=== PATIENT | female | born 1980 | race Caucasian/White ===

== ENCOUNTER → 2020-07-27 13:29 | Outpatient (CLI) | payer OTHER, SELFPAY ==
--- NOTE | ~2020-07-27 | MM_ITS ---
EXAMINATION: MM screening esvin BI w nataly HISTORY: Screening TECHNIQUE: Craniocaudal and mediolateral oblique 3-D tomosynthesis images were obtained and synthetic 2-D images were generated. CAD analysis was submitted and interpreted. COMPARISON: Comparison to multiple prior studies sequentially, with oldest reviewed study dated 08/13. BREAST PARENCHYMAL COMPOSITION: There are scattered areas of fibroglandular density. FINDINGS: There is no evidence of suspicious mass, calcification, or architectural distortion to sugg est malignancy in either breast. There has been no suspicious interval change. IMPRESSION: 1. No mammographic evidence of malignancy. 2. Recommend routine screening mammography in one year. BI-RADS Category 1: Negative Reviewed, dictated and finalized at location A. CH COMMUNICATION PROFESSOR
== END ==
PROVIDERS: Visit Provider Obstetrics & Gynecology
DX: Z12.31 Encounter for screening mammogram for malignant neoplasm of breast (principal)
CPT/HCPCS: 77063; 77067

== ENCOUNTER 2020-08-07 14:43 | Outpatient (CLI) | payer OTHER, SELFPAY ==
[2020-08-07 15:10] LABS: Basophils Percent Auto 0.3 % (0.2-1.2); Eosinophils Absolute Auto 0.1 K/mm3 (0-0.3); Hematocrit 46.3 % (37.0-47.0); Immature Granulocyte Absolute 0.03 K/mm3 (0.00-0.031); Immature Granulocyte Percent A 0.2 % (0-0.5); Lymphocytes Absolute Auto 2.48 K/mm3 (0.9-3.2); Lymphocytes Percent Auto 20.3 % (18.3-44.2); Mean Corpuscular HGB Conc 34.6 g/dl (32-36); Mean Corpuscular Hemoglobin 30.4 pg (26-34); Monocytes Absolute Auto 0.8 K/mm3 (0.1-0.6); Monocytes Percent Auto 6.5 % (2.6-8.5); Neutrophils Absolute Auto 8.7 K/mm3 (1.3-6.7); Neutrophils Percent Auto 71.7 % (45.5-73.1); Platelet Count Result 311 k/mm3 (150-375); Red Blood Count 5.26 M/mm3 (4.2-5.4); Red Cell Distribution Width 12.7 % (11.5-14.5); White Blood Count 12.2 K/mm3 (4.5-10.0)
== END 2020-08-07 14:44 | disposition home or self-care (01) ==
PROVIDERS: PCP Internal Medicine; Visit Provider Obstetrics & Gynecology
DX: Z01.812 Encounter for preprocedural laboratory examination (principal); N80.9 Endometriosis, unspecified; N93.9 Abnormal uterine and vaginal bleeding, unspecified
CPT/HCPCS: 36415; 85025; 86850; 86900; 86901

== ENCOUNTER → 2020-08-08 03:41 | Outpatient (CLI) | payer OTHER, SELFPAY ==
[2020-08-09 18:18] LABS: SARS-CoV-2 RNA PCR Negative
== END ==
PROVIDERS: PCP Internal Medicine; Visit Provider Obstetrics & Gynecology
DX: Z01.812 Encounter for preprocedural laboratory examination (principal); Z20.822 Contact with and (suspected) exposure to COVID-19
CPT/HCPCS: C9803; U0003; U0005

== ENCOUNTER 2020-08-11 01:13 | Day surgery (SDC) | payer OTHER, SELFPAY ==
[2020-08-07 11:24] VITALS: BMI 58.2
--- NOTE | 2020-08-08 14:15 | PM.IMHP ---
H&P: HPI History of Present Illness Date/Time: 08/08/20 14:15 Chief Complaint: pain/bleeding Narrative: Margarita Arce is a 40 year old female G0 was admitted for hysterectomy and bilateral salpingectomy with possible right salpingo-oophorectomy. She has chronic pelvic pain with an enlarged uterus and dysmenorrhea as well as dyspareunia and history of endometriosis. Risks and benefits reviewed including not exclusive of , aspiration pneumonia, bleeding, transfusion, perforation injury to bowel, bladder, ureters, or other internal organs with need for laparotomy. She received the ACOG handout entitled hysterectomy as well as the Red hand. She had all questions answered. She asked to proceed Review of Systems Review of Systems: All systems reviewed & are unremarkable except as noted in HPI and below PMFSH Social History Social History Smoking status: Never smoker Second hand tobacco smoke exposure: No Alcohol intake: never Substance use: never Spiritual care concerns: No Meds Home Medications and Allergies Home Medications Medication Instructions Recorded Confirmed Type dulaglutide [Trulicity] 1.5 mg SUBCUT WEEKLY 08/07/20 08/07/20 History Allergies Allergy/AdvReac Type Severity Reaction Status Date / Time No Known Allergies Allergy Verified 08/07/20 11:22 Exam Const: General: no acute distress Eyes: General: appearance normal, both eyes and all related structures Neck: Neck: supple and no JVD Thyroid: thyroid normal Resp: Effort & Inspection: normal respiratory effort Auscultation: clear to auscultation bilaterally Cardio: Rate: regular rate Rhythm: regular rhythm GI: Inspection: non-distended GI Palp: Yes Soft to palpation, No Tenderness to palpation present (GI) and No Guarding due to palpation present (GI) Auscultation: normal bowel sounds : General: Yes bladder normal to inspection External Female Exam: normal external appearance Speculum Exam - Vagina: normal appearance of the vagina Speculum Exam - Cervix: Cervical mass present Bimanual exam- vagina & uterus: enlarged Bimanual Exam- Adnexa, other: tender on the right Skin: General skin exam: no rashes or lesions noted Extrem: General: normal to inspection and no edema Psych: Mental Status: mental status grossly normal Affect: normal affect Assessment and Plan Additional Plan impression: Pelvic pain / enlarged uterus / dysmenorrhea / dyspareunia Plan: Robotic total vaginal hysterectomy with bilateral salpingectomy /possible right salpingo-oophorectomy
[2020-08-11] VITALS (22 sets, daily range): BP systolic 152–172; BP diastolic 70–115; PULSE 82–109; RESP 12–20; TEMP 36.3–37.7; O2SAT 89–98; BMI 57.2
--- NOTE | 2020-08-11 06:19 | WPDHPUPDATE1 ---
History and Physical Update Update Date/Time: 08/11/20 06:19 History and Physical has been reviewed, including an updated exam of the patient. There are NO changes in the patient's condition. Risks, benefits, and alternatives have been discussed and questions answered. Patient agrees to proceed with procedure.
[2020-08-11] MEDS: LACTATED RINGERS 1,000 ML 30 ML IV CONT (06:58)
[2020-08-11] MEDS: ACETAMINOPHEN 500 MG TABLET 1000 MG PO (06:59)
[2020-08-11] MEDS: KETOROLAC 15 MG/ML VIAL (*BKC) IV PUSH (06:59)
--- NOTE | 2020-08-11 07:07 | SUR.PREOP ---
DR ERICKSON NOTIFIED OF VS.
--- NOTE | 2020-08-11 07:13 | WPDANESEPPF ---
Anes - Initial Pre Proc Eval Procedure: Operation Date: 08/11/20 07:30 Proposed Procedures p Robotic Assisted Total Vaginal Hysterectomy, Bilateral Salpingectomy, Possible Right Salpingo-Oophorectomy - Papito Arteaga MD Date/Time: 08/11/20 07:13 Surgeon: Papito Arteaga MD Pre Op Diagnosis: Pelvic pain, Enlarge Uterus, Endometriosis, Dyspur Patient Data Age: 40 Gender: F Height: 5 ft 5 in Weight: 155.9 kg Last Vital Signs Temp 98.0 F 08/11/20 07:05 Pulse 100 08/11/20 07:05 Resp 20 08/11/20 07:05 BP 172/86 H 08/11/20 07:05 Pulse Ox 98 08/11/20 07:05 Allergies Allergy/AdvReac Type Severity Reaction Status Date / Time No Known Allergies Allergy Verified 08/07/20 11:22 Home Medications Medication Instructions Recorded Confirmed Type Trulicity 1.5 mg SUBCUT WEEKLY 08/07/20 08/11/20 History Patient hx anesthesia problems: none Family hx anesthesia problems: none COUNTS INCLUDE 234 BEDS AT THE [facility] Past Medical History Medical History (Updated 08/11/20 @ 07:13 by Vinnie Stewart MD) Hypertension on admission to our unit; does not take any medications; states usually normal Super obesity Social History Social History Smoking status: Never smoker Second hand tobacco smoke exposure: No Alcohol intake: never Substance use: never Living arrangements: with family Spiritual care concerns: No Anes - Eval Final PreProcedure Day of Procedure 08/11/20 07:13 Patient weight: super morbidly obese Heart: regular rate and rhythm Lungs: clear to auscultation Airway: Mallampati scale class III Neurological: alert and oriented Last oral intake: >/= 8 hours ASA classification: IV Emergent: no Anesthetic plan: proceed Anesthesia type and monitoring: general ETT and standard monitoring Informed Consent: The patient's anesthetic plan and its attendant risks and benefits were discussed with the patient/family/POA. Questions were solicited and answers provided to the satisfaction of the patient/family/POA.
[2020-08-11] MEDS: ceFAZolin 3 GM/D5W 100 ML 100 ML IVPB (07:24)
--- NOTE | 2020-08-11 08:52 | P.OP_ITS ---
Procedure Note - Detailed Date of procedure: 08/11/20 Pre-op diagnosis: Pelvic pain, Enlarge Uterus, Endometriosis, Dyspur Surgeon: Papito Arteaga MD Postop diagnosis: Pelvic pain/enlarged uterus/dyspareunia Procedure: Robotic total vaginal hysterectomy and bilateral salpingectomy Anesthesia: General endotracheal EBL: 25cc Findings: Enlarged uterus. Normal-appearing ovaries and tubes Complications: None. The right ovary appeared within normal limits in this was not removed. Description of the procedure: The patient was prepped and draped in the normal sterile fashion placed in the dorsal lithotomy position. Under excellent general endotracheal anesthesia weighted speculum was placed in posterior fornix vagina. Anterior lip of the cervix was grasped with a single-tooth tenaculum i in the uterus sounded to 10cm. Serial dilatation with fragmented dilators performed followed by passage of the 10. THIAGO and the 3. Cold cup. Next the 16 [place] catheter was placed in the bladder and the bladder drained of clear urine. The weighted speculum was removed. The gloves were changed. A supraumbilical incision made in the Veress needle passed in the abdomen. The abdomen was filled with CO2 gas [id number]. The 8mm trocar advanced in the abdomen the downside visualized. No injury seen the patient placed in Trendelenburg and right and left lateral quadrant incisions made the 8mm trocar small was advanced in the right lower quadrant under direct visualization assuring no injury a longer trocar in the size been 8 was passed through the left lower quadrant and assuring no injury. The right upper quadrant incision made and 8mm trocar advanced under direct visualization. The robot was docked. Attention was turned to the financial health counselor. The left round ligament was grasped, burned, cut. Anterior bladder flap was formed by sharply dissecting and reflecting the bladder caudally away from the cervix and uterus to the opposite round ligament was clamped, burned, cut. Each ovary appeared within normal limits. The left and right fallopian tubes were then sharply dissected with cautery and brought to the level of its entrance in the uterus. The left utero- ovarian ligament was skeletonized to conserve the left ovary. This was clamped, burned, cut and brought to the level of the previously cut round ligament. In like fashion the right utero-ovarian ligament conserving the right ovary was clamped, burned, cut and brought to the level of the previously cut round ligament. The cardinal and broad ligaments on the left were serially skeletonized. These were clamped, burned, cut and brought down to the level of the uterine vessels. Each uterine vessel on the left was clamped, burned, cut. In the like fashion the right cardinal and broad ligaments were skeletonized. These were clamped, burned, cut and brought down the lateral edge of the cervix and uterus until the vessels could be seen on the right. These were individually clamped, burned, cut. Excellent blanching the uterus was seen at a colpotomy incision was made. The uterus and cervix and tubes removed through the vagina. The pedicles all appeared dry. The vagina closed with continuous running 0V lock from lateral edge to lateral edge back to the midline. Irrigation undertaken to clear blood loss estimated 25cc. The raw surface area was prepped with [place] term. Pedicles appeared dry and the robot was undocked. The gas removed from the abdomen. The incisions closed with 4 O Monocryl and glue. The instruments removed from the vagina. The patient went to recovery in satisfactory condition. All sponge, needle, instrument counts were correct. There were no immediate complications noted
[2020-08-11] MEDS: fentaNYL CITRATE INJ (*CRX) 100 MCG/2 ML VIAL 25 MCG IV PUSH ×2 (09:22→09:27)
--- NOTE | 2020-08-11 10:06 | PC.NURSE ---
This patient, Margarita Arce, was received from PACU on 08/11/20 at 1006. Patient/family oriented to unit policies and routines
[2020-08-11] MEDS: KETOROLAC 30 MG/ML VIAL (*BKC) IV PUSH (11:16)
[2020-08-11] MEDS: DEXTROSE 5%/LACTATED RINGERS 1,000 ML 125 ML IV CONT (11:16)
[2020-08-11] MEDS: LABETALOL HCL 100 MG TABLET 200 MG PO (11:49)
[2020-08-11] MEDS: HYDROcodone/acetaminophen (*CRX) 10-325 MG TABLET 1 TAB PO (13:42)
[2020-08-11] MEDS: DOCUSATE SODIUM 100 MG CAPSULE PO (13:43)
[2020-08-11] MEDS: lisinopriL 10 MG TABLET PO (14:00)
[2020-08-12 00:30] VITALS: BP 150/80; PULSE 101; RESP 17; TEMP 36.8
[2020-08-12 05:27] VITALS: BP 157/72; PULSE 99; RESP 18; TEMP 36.9; O2SAT 96
[2020-08-12] MEDS: IBUPROFEN 600 MG TABLET PO (06:59)
[2020-08-12] MEDS: SIMETHICONE 80 MG TAB.CHEW PO (06:59)
[2020-08-12] MEDS: ENOXAPARIN 40 MG/0.4 ML SYRINGE SUB-Q (06:59)
[2020-08-12] MEDS: DOCUSATE SODIUM 100 MG CAPSULE PO (06:59)
[2020-08-12] MEDS: HYDROcodone/acetaminophen (*CRX) 5-325 MG TABLET 1 TAB PO (07:00)
[2020-08-12 07:10] VITALS: BP 156/91; PULSE 98; RESP 16; TEMP 36.9; O2SAT 99
[2020-08-12 07:13] LABS: Basophils Percent Auto 0.1 % (0.2-1.2); Eosinophils Percent Auto 0.2 % (0-4.4); Hematocrit 44.4 % (37.0-47.0); Hemoglobin 14.8 g/dL (12.0-15.0); Immature Granulocyte Absolute 0.08 K/mm3 (0.00-0.031); Immature Granulocyte Percent A 0.5 % (0-0.5); Lymphocytes Absolute Auto 2.38 K/mm3 (0.9-3.2); Lymphocytes Percent Auto 15.3 % (18.3-44.2); Mean Corpuscular HGB Conc 33.3 g/dl (32-36); Mean Corpuscular Hemoglobin 29.8 pg (26-34); Mean Corpuscular Volume 89.5 fl (80-100); Mean Platelet Volume 9.1 fl (7.4-10.4); Monocytes Absolute Auto 1.3 K/mm3 (0.1-0.6); Monocytes Percent Auto 8.1 % (2.6-8.5); Neutrophils Absolute Auto 11.8 K/mm3 (1.3-6.7); Neutrophils Percent Auto 75.8 % (45.5-73.1); Platelet Count Result 272 k/mm3 (150-375); Red Blood Count 4.96 M/mm3 (4.2-5.4); Red Cell Distribution Width 12.9 % (11.5-14.5); White Blood Count 15.6 K/mm3 (4.5-10.0)
--- NOTE | 2020-08-12 08:17 | P.DS_ITS ---
DS: Admitting Diagnosis Admitting Diagnosis Admitting Diagnosis: pelvic pain endometriosis dysmenorrhea DS: Summary Hospital Course Hospital Course: Margarita Arce was admitted for robotic total laparoscopic hysterectomy and bilateral salpingectomy. She has chronic pelvic pain with an enlarged uterus and dysmenorrhea as well as dyspareunia and history of endometriosis. The above procedure was performed with no complications. She is doing well post op. She states her pain is well controlled with PO medications. She reports minimal bleeding. She is ambulating up to the chair. Her knox catheter was removed. She is tolerating PO without N/V. She reports passing flatus. Status at Discharge Overall status at discharge: patient is progressing back to baseline Time Spent with Patient Time attestation: Total time spent providing and/or coordinating discharge services: Time spent: Less than 30 minutes Exam Const: General: comfortable and no acute distress Limitations: no limitations Resp: Effort & Inspection: normal respiratory effort Auscultation: clear to auscultation bilaterally Cardio: Rate: regular rate Rhythm: regular rhythm GI: Inspection: non-distended GI Palp: Yes Soft to palpation, Yes Tenderness to palpation present (GI) (milder tenderness to deep palpation) and No Guarding due to palpation present (GI) Auscultation: normal bowel sounds Other: incisions C/D/I covered with dermabond Urinary Catheter: Urinary Catheter: urine clear Skin: General skin exam: normal color Extrem: General: normal to inspection Psych: Mental Status: mental status grossly normal Affect: normal affect DS: Data Data Completed and Pending Pending studies at discharge: Pending at discharge 08/11/20 08:54 Surgical [PTH] Routine Labs on day of discharge: Labs from last 24 hours 08/12/20 06:50 WBC 15.6 H RBC 4.96 Hgb 14.8 Hct 44.4 MCV 89.5 MCH 29.8 MCHC 33.3 RDW 12.9 Plt Count 272 MPV 9.1 Immature Gran % (Auto) 0.5 Neut % (Auto) 75.8 H Lymph % (Auto) 15.3 L [place] % (Auto) 8.1 Eos % (Auto) 0.2 Baso % (Auto) 0.1 L Lymph # (Auto) 2.38 [place] # (Auto) 1.3 H Eos # (Auto) 0.0 Baso # (Auto) 0.0 Abs Immat Gran (auto) 0.08 H Absolute Neuts (auto) 11.8 H Absolute Nucleated RBC 0.0 Nucleated RBC % 0.0 Discharge Plan Discharge Patient Disposition: Home, Self-Care Patient Instructions: Laparoscopic Hysterectomy (DC) Stand Alone Forms: General Discharge Instructions Follow-up/Referrals: Papito Arteaga MD [Physician] - Discharge Medications: New docusate sodium 100 mg Capsule 100 mg PO BID Qty: 30 RF: 0 ibuprofen 600 mg Tablet 600 mg PO Q6H PRN (Reason: Cramping) Qty: 30 RF: 0 hydrocodone-acetaminophen 5-325 mg Tablet 1 tablet PO Q3H PRN (Reason: Pain Rated 5 Or Less) Qty: 28 RF: 0 Continued Trulicity 1.5 mg/0.5 mL Pen Injector 1.5 mg SUBCUT WEEKLY RF: 0
--- NOTE | 2020-08-12 08:53 | WPDANESPN ---
Anes - Prog Note Post-Op Date/Time: 08/12/20 08:53 Cardiovascular status: normal Respiratory status: normal Airway patency: baseline Mental status: baseline Post-Op hydration status: normal Vital Signs: Last Vital Signs Temp 36.9 C 08/12/20 07:10 Pulse 98 08/12/20 07:10 Resp 16 08/12/20 07:10 BP 156/91 H 08/12/20 07:10 Pulse Ox 99 08/12/20 07:10 Pain Score (VAS): 0 I/O: Intake & Output 08/11/20 08/12/20 08/12/20 23:59 07:59 15:59 Intake Total 2400 3500 Output Total 1000 3500 Balance 1400 0 Laboratory Tests 08/12/20 06:50 08/12/20 06:50 WBC 15.6 H RBC 4.96 Hgb 14.8 Hct 44.4 MCV 89.5 MCH 29.8 MCHC 33.3 RDW 12.9 Plt Count 272 MPV 9.1 Immature Gran % (Auto) 0.5 Neut % (Auto) 75.8 H Lymph % (Auto) 15.3 L [place] % (Auto) 8.1 Eos % (Auto) 0.2 Baso % (Auto) 0.1 L Lymph # (Auto) 2.38 [place] # (Auto) 1.3 H Eos # (Auto) 0.0 Baso # (Auto) 0.0 Abs Immat Gran (auto) 0.08 H Absolute Neuts (auto) 11.8 H Absolute Nucleated RBC 0.0 Nucleated RBC % 0.0 Post-procedural complaints: none Patient Feedback: Patient satisfied with anesthetic care.
--- NOTE | 2020-08-12 09:55 | PC.NURSE ---
Discharge instructions given to pt. including when to follow up with MD. Pt. verbalized understanding. No questions or concerns voiced. at side.
== END 2020-08-12 10:07 | disposition home or self-care (01) ==
LOC: ANHSURGERY 05:57 → ANHOB2 10:08
PROVIDERS: PCP Internal Medicine; Visit Provider Obstetrics & Gynecology
PROC: (CPT 58552; principal; 2020-08-11 07:30)
DX: R10.2 Pelvic and perineal pain (principal); N84.0 Polyp of corpus uteri; N94.6 Dysmenorrhea, unspecified; N94.10 Unspecified dyspareunia; E66.01 Morbid (severe) obesity due to excess calories; Z68.43 Body mass index [BMI] 50.0-59.9, adult
CPT/HCPCS: 58552; S2900; 36415; 85025; 86850; 86900; 86901; 88307; 99199; A9270; C9803; J0330; J0690; J1100; J1650; J1885; J2250; J2405; J2704; J2710; J3010; J7030; J7120; J7121; U0003; U0005

== ENCOUNTER → 2021-10-03 14:10 | Outpatient (CLI) | payer OTHER, SELFPAY ==
--- NOTE | ~2021-10-03 | MM_ITS ---
EXAMINATION: MM screening esvin BI w nataly HISTORY: Screening TECHNIQUE: Craniocaudal and mediolateral oblique 3-D tomosynthesis images were obtained and synthetic 2-D images were generated. CAD analysis was submitted and interpreted. COMPARISON: Comparison to multiple prior studies sequentially, with oldest reviewed study dated 08/13. BREAST PARENCHYMAL COMPOSITION: There are scattered areas of fibroglandular density. FINDINGS: There is no evidence of suspicious mass, calcification, or architectural distortion to sugg est malignancy in either breast. There has been no suspicious interval change. IMPRESSION: 1. No mammographic evidence of malignancy. 2. Recommend routine screening mammography in one year. BI-RADS Category 1: Negative Reviewed, dictated and finalized at location A.
== END ==
PROVIDERS: Visit Provider Obstetrics & Gynecology
DX: Z12.31 Encounter for screening mammogram for malignant neoplasm of breast (principal)
CPT/HCPCS: 77063; 77067

== ENCOUNTER → 2022-12-19 12:15 | Outpatient (CLI) | payer OTHER, SELFPAY ==
--- NOTE | ~2022-12-19 | MM_ITS ---
EXAMINATION: MM screening esvin BI w nataly HISTORY: Screening mammogram TECHNIQUE: Craniocaudal and mediolateral oblique 3-D tomosynthesis images were obtained and synthetic 2-D images were generated. CAD analysis was submitted and interpreted. COMPARISON: October 03, 2021, July 27, 2020, August 13, 2018 bilateral screening mammogram examinat ions BREAST PARENCHYMAL COMPOSITION: There are scattered areas of fibroglandular density. FINDINGS: There are suspicious grouped microcalcifications including subtle granular as well as linea r microcalcifications in the central right breast. Diagnostic right mammogram with magnification view s and right breast ultrasound examination are recommended. Otherwise no suspicious mass, architectural distortion, malignant calcification, skin thickening or r etraction of either breast is detected. IMPRESSION: 1. Very suspicious microcalcifications in the central right breast, suggestive of DCIS or invasive du ctal carcinoma 2. Diagnostic right mammogram with magnification views and right breast ultrasound examination are re commended BI-RADS Category 0: Incomplete: Needs additional imaging evaluation. Reviewed, dictated and finalized at location A. IMPRESSION: 1. Very suspicious microcalcifications in the central right breast, suggestive of DCIS or invasive ductal carcinoma 2. Diagnostic right mammogram with magnification views and right breast ultraso und examination are recommended BI-RADS Category 0: Incomplete: Needs additional imaging evaluation.
== END ==
PROVIDERS: PCP Nurse Practitioner; Visit Provider Obstetrics & Gynecology
DX: Z12.31 Encounter for screening mammogram for malignant neoplasm of breast (principal)
CPT/HCPCS: 77063; 77067

== ENCOUNTER → 2023-01-22 09:46 | Outpatient (CLI) | payer OTHER, SELFPAY ==
--- NOTE | ~2023-01-22 | MM_ITS ---
EXAMINATION: MM diagnostic esvin RT w nataly HISTORY: Right breast calcifications on screening mammogram TECHNIQUE: Magnification views of the right breast were performed and synthetic 2-D images were gener ated. CAD analysis was submitted and interpreted. COMPARISON: 12/19/2022, 10/03/2021, 07/27/2020 BREAST PARENCHYMAL COMPOSITION: There are scattered areas of fibroglandular density. FINDINGS: There are grouped fine pleomorphic and amorphous calcifications in the middle third of the upper breast at the 12:00 location 8 cm from the nipple. No associated mass is identified. IMPRESSION: 1. Indeterminate right breast calcifications. 2. Stereotactic biopsy is recommended. BI-RADS category 4, suspicious findings. Reviewed, dictated and finalized at location A.
== END ==
PROVIDERS: PCP Nurse Practitioner; Visit Provider Obstetrics & Gynecology
DX: R92.8 Other abnormal and inconclusive findings on diagnostic imaging of breast (principal); R92.1 Mammographic calcification found on diagnostic imaging of breast
CPT/HCPCS: 77061; 77065; G0279

== ENCOUNTER 2023-02-03 12:54 | Outpatient (CLI) | payer OTHER, SELFPAY ==
--- NOTE | ~2023-02-03 | US_ITS ---
EXAMINATION: US breast RT limited HISTORY: Patient with suspicious right breast calcification presents for evaluation for possible ultr asound no correlate TECHNIQUE: Limited right breast ultrasound was performed. FINDINGS: There is no evidence of focal abnormal cystic or solid mass in the vicinity of the mammogra phic detected right breast calcifications. IMPRESSION: No sonographic correlate for the right breast calcifications. Stereotactic biopsy remains indicated. BI-RADS Category 1: Negative Reviewed, dictated and finalized at location A. IMPRESSION: No sonographic correlate for the right breast calcifications. Stereotactic biop sy remains indicated. BI-RADS Category 1: Negative
== END 2023-02-03 12:55 | disposition home or self-care (01) ==
PROVIDERS: PCP Nurse Practitioner; Visit Provider Surgery
DX: R92.8 Other abnormal and inconclusive findings on diagnostic imaging of breast (principal)
CPT/HCPCS: 76642

== ENCOUNTER 2023-02-11 12:49 | Outpatient (CLI) | payer OTHER, SELFPAY ==
--- NOTE | ~2023-02-11 | MM_ITS ---
MM stereotactic bx RT, MM post biopsy diagnostic RT, MM stereotactic specimen RT EXAMINATION: MM stereotactic bx RT, MM post biopsy diagnostic RT, MM stereotactic specimen RT INDICATION: Abnormal calcifications in the right breast. Stereotactic core biopsy is requested evalu ate for malignancy.] TECHNIQUE AND FINDINGS: The risks and potential benefits of the procedure were discussed with the patient and written informe d consent was obtained. The patient was placed in the prone position clustered at the table with the right breast in craniocaudal compression, and the area of interest was localized and targeted utiliz ing digital imaging with stereotaxis. After sterile preparation of the skin, 1% lidocaine was utilized for local anesthesia at the skin pun cture site and 1% lidocaine with epinephrine was utilized for deeper local anesthesia/is about the bi opsy site. A 9G CritiSense vacuum assisted biopsy needle was advanced to the level of the calcification o f interest from a cephalad approach utilizing stereotactic guidance and a total of 6 tissue core biop sies were obtained. A specimen radiograph demonstrates that the calcifications of interest are included within the tissue cores. A tissue marker clip was then placed at the biopsy site. The needle was removed and hemosta sis was achieved. The patient tolerated the procedure well and there is no evidence of significant i mmediate complication. The patient was given verbal as well as written postprocedural instructions p rior to discharge from the department. Tissue cores were submitted to surgical pathology for histolo gic analysis. A 2-view right unilateral digital mammogram was obtained post procedure and this demonstrates that th e tissue marker clip is in expected position.] IMPRESSION: 1. Successful stereotactic biopsy of calcifications in the right breast, followed by tissue marker c lip placement. Please refer to pathology report for histologic analysis. Reviewed, dictated and finalized at location A. IMPRESSION: 1. Successful stereotactic biopsy of calcifications in the right breast, follo wed by tissue marker clip placement. Please refer to pathology report for hist ologic analysis. IMPRESSION: 1. Successful stereotactic biopsy of calcifications in the right breast, follo wed by tissue marker clip placement. Please refer to pathology report for hist ologic analysis.
== END 2023-02-11 12:50 | disposition home or self-care (01) ==
PROVIDERS: PCP Nurse Practitioner; Visit Provider Surgery
DX: D05.11 Intraductal carcinoma in situ of right breast (principal)
CPT/HCPCS: 19081; 77065; 88305; 88342

== ENCOUNTER 2023-03-18 13:49 | Outpatient (CLI) | payer OTHER, SELFPAY ==
--- NOTE | ~2023-03-18 | MM_ITS ---
EXAMINATION: MM_MAGSEEDRT_MG INDICATION: Right breast cancer TECHNIQUE: The procedure for a ultrasound -guided Magseed localization was discussed with the patient . Risks discussed included bleeding and infection. The patient verbalized understanding and agreed to proceed. The time out was performed to verify the patient's name, date of , and site of procedure. The s kin overlying the right breast was prepared in usual fashion. Utilizing mammographic guidance, the ne edle was advanced into the right breast. Confirmation of Magseed position was achieved with mammograp hy. The patient tolerated procedure without immediate complication. FINDINGS: Mammographic images demonstrate deployment of the Magseed device of the biopsy-proven right breast cancer. IMPRESSION: 1. Successful mammographically guided right breast Magseed localization. Reviewed, dictated and finalized at location A.
== END 2023-03-18 13:50 | disposition home or self-care (01) ==
PROVIDERS: PCP Nurse Practitioner; Visit Provider Surgery
DX: D05.11 Intraductal carcinoma in situ of right breast (principal); R92.8 Other abnormal and inconclusive findings on diagnostic imaging of breast; R92.0 Mammographic microcalcification found on diagnostic imaging of breast
CPT/HCPCS: 19281; A4648

== ENCOUNTER 2023-03-20 12:16 | Outpatient (CLI) | payer OTHER, SELFPAY ==
--- NOTE | 2023-03-20 12:24 | ECG_ITS ---
Measurements Intervals [place] Rate: 81 P: -14 PA: 154 QRS: 8 QRSD: 78 T: 16 QT: 382 QTc: 446 Interpretive Statements SINUS RHYTHM LOW QRS VOLTAGE IN PRECORDIAL LEADS POOR R WAVE PROGRESSION, ANTERIOR LEADS BORDERLINE T WAVE ABNORMALITY- INFERIOR LEADS BASELINE ARTIFACT- I, II, III, AVR, AVL, AVF BORDERLINE ECG NO PREVIOUS ECG AVAILABLE FOR COMPARISON Electronically Signed On 03-20-2023 12:34:24 CDT by Jet Pagan D.O.
[2023-03-20 12:46] LABS: Anion Gap 6 mmol/L (8-16); Blood Urea Nitrogen 13 mg/dL (7-17); Carbon Dioxide 31 mmol/L (22-30); Chloride 100 mmol/L (98-107); Estimated Glomerular Filt Rate > 60; Glucose 125 mg/dL (65-110); Potassium 3.6 mmol/L (3.4-5.0); Sodium 137 mmol/L (137-145)
== END 2023-03-20 12:17 | disposition home or self-care (01) ==
LOC: ANHSURGERY 12:21
PROVIDERS: Anesthesiology; PCP Nurse Practitioner; Visit Provider Surgery
DX: Z01.818 Encounter for other preprocedural examination (principal); R73.03 Prediabetes; I10 Essential (primary) hypertension
CPT/HCPCS: 36415; 80048; 93005

== ENCOUNTER 2023-03-26 00:21 | Day surgery (SDC) | payer OTHER, SELFPAY ==
[2023-03-19 12:27] VITALS: BMI 51.2
--- NOTE | 2023-03-19 12:31 | PC.NURSE ---
Report to the Outpatient Waiting Room, entrance under the green pavilion located off [facility], at time 10:00 on date 03/26/23. Planned Procedure Time: 12:00. Time changes happen often and if your time is changed the preop area will call you the afternoon before. - You and your visitor will be asked to self-screen and do not enter if you have any COVID symptoms. - A mask is optional within the hospital at this time. Patients may have clear liquids (water, carbonated beverages, clear teas, apple juice) until 3 hours prior to surgery (9:00) with a maximum of 20 ounces. - No food from midnight until time of surgery Take the following medications with a SIP of water the morning of surgery: BISOPROLOL DO NOT STOP ANY OF YOUR OTHER PRESCRIPTION MEDICATIONS PRIOR TO SURGERY ?EXCEPT THE FOLLOWING Medications to discontinue per physician: N/A Date to take last dose: N/A Please no make-up, nail chadian, hairspray, perfume, deodorant, or body powder the day of surgery. No jewelry (including any body piercings) or valuables the day of surgery, leave them at home. Please take a shower or bath the night before, or the morning of, surgery with an antibacterial soap. Wear comfortable, loose fitting clothing. - Jewelry must be removed prior to entering the operating room. Rings and piercings that are not removed may be cut off. - The hospital will not accept responsibility for valuables. - Please leave all valuables, including medications, at home the day of surgery. If you are going home after surgery, a licensed guard driver must drive you home. - NO public transportation without another adult if you receive anesthesia. - We recommend that an adult stay with you for 24 hours following discharge. - We also recommend that you do not drive, make important decision, drink alcoholic beverages, or take any drugs that were not prescribed by your health care provider for at least 24 hours after your discharge time. Follow any additional instructions given to you from your surgeon. If you or anyone in your household have experienced Covid symptoms in the past week, please notify your surgeon or the nurse liaison at the phone number below for possible testing. Telephone instructions given to PT - LIVE WALKER and asked if any additional questions and then verbalized understanding. Patient advised to call surgeon office or pre surgery nurse liaison [phone] if any additional questions.
[2023-03-26] VITALS (8 sets, daily range): BP systolic 125–141; BP diastolic 75–91; PULSE 83–106; RESP 12–16; TEMP 36.4–37.1; O2SAT 92–100
--- NOTE | ~2023-03-26 | MM_ITS ---
EXAMINATION: MM_FAXITRON_MG HISTORY: Surgical excision, breast cancer TECHNIQUE: Single digital mammographic exposure of surgical soft tissue specimen COMPARISON: 03/18/2023 Magseed right FINDINGS: The radiopaque biopsy marker and Magseed are present within the surgical specimen tissue. IMPRESSION: Successful surgical excision of radiopaque biopsy marker and Magseed Reviewed, dictated and finalized at location A.
[2023-03-26] MEDS: ACETAMINOPHEN 500 MG TABLET 1000 MG PO (10:25)
[2023-03-26] MEDS: LACTATED RINGERS 1,000 ML 30 ML IV CONT ×2 (11:00→13:54)
[2023-03-26 11:09] LABS: Glucose Point of Care 113 mg/dl (65-105)
--- NOTE | 2023-03-26 11:15 | P.PNAN_ITS ---
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 Patient Data Age: 42 Gender: F Height: 1.65 m Weight: 140.1 kg Last Vital Signs Temp 37.1 C 03/26/23 11:09 Pulse 83 03/26/23 11:09 Resp 16 03/26/23 11:09 BP 130/84 03/26/23 11:09 Pulse Ox 98 03/26/23 11:09 O2 Del Method Room Air 03/26/23 11:09 Allergies Allergy/AdvReac Type Severity Reaction Status Date / Time No Known Allergies Allergy Verified 03/26/23 10:42 Home Medications Medication Instructions Recorded Confirmed Type atorvastatin 10 mg tablet 10 mg PO DAILY 01/27/23 03/26/23 History bisoprolol fumarate 5 mg tablet 5 mg PO DAILY 01/27/23 03/26/23 History lisinopril 5 mg tablet 5 mg PO DAILY 01/27/23 03/26/23 History tirzepatide 2.5 mg/0.5 mL 2.5 mg subcut WEEKLY 01/27/23 03/26/23 History subcutaneous pen injector (Mounjaro) Laboratory Tests 03/26/23 11:05 POC Capillary Glucose 113 H mg/dl (65-105) Patient hx anesthesia problems: none Family hx anesthesia problems: none Results Review: All pre-operative results and documents have been reviewed as part of the pre- operative evaluation. FORMERLY [facility] Past Medical History Medical History Hypertension on admission to our unit; does not take any medications; states usually normal Super obesity Surgical History Surgical History H/O: hysterectomy Social History Social History Smoking status: Never smoker Second hand tobacco smoke exposure: No Alcohol intake: never Substance use: never Substance use type: does not use Lack of Transportation: No Lack of Food: Never True Current Housing: I Have Housing Concerned About Future Housing: No Difficulty Paying Gas/Electric Bills: No Difficulty Paying for Meds: No Currently Unemployed: No Education: Bachelor's Degree Difficulty w/ Childcare or Family Care: No Living arrangements: with family Spiritual care concerns: No Anes - Eval Final PreProcedure Day of Procedure 03/26/23 11:15 Patient weight: morbidly obese Heart: regular rate and rhythm Lungs: clear to auscultation Airway: Mallampati scale class II Neurological: alert and oriented Last oral intake: >/= 8 hours ASA classification: III Emergent: no Anesthetic plan: proceed Anesthesia type and monitoring: general LMA and standard monitoring Results Review: All pre-operative results and documents have been reviewed as part of the pre- operative evaluation. Informed Consent: The patient's anesthetic plan and its attendant risks and benefits were discussed with the patient/family/POA. Questions were solicited and answers provided to the satisfaction of the patient/family/POA.
--- NOTE | 2023-03-26 11:23 | WPDHPUPDATE1 ---
History and Physical Update Update Date/Time: 03/26/23 11:23 History and Physical has been reviewed, including an updated exam of the patient. There are NO changes in the patient's condition. Risks, benefits, and alternatives have been discussed and questions answered. Patient agrees to proceed with procedure.
[2023-03-26] MEDS: ceFAZolin 3 GM/D5W 100 ML 100 ML IVPB (12:17)
[2023-03-26] MEDS: BUPIVACAINE/EPINEPHRINE 0.5% 50 ML VIAL 20 ML INFILTRATE (12:53)
--- NOTE | 2023-03-26 13:26 | SUR.OPER ---
right breast lumpectomy on grid fresh received in pathology per Christine.
--- NOTE | 2023-03-26 13:39 | SUR.OPER ---
2nd specimen sent fresh to pathology and received per
--- NOTE | 2023-03-26 13:42 | P.OP_ITS ---
Procedure Note - Detailed Date of Procedure 03/26/23 Pre-op Diagnosis Right breast ductal carcinoma in Situ Post-op Diagnosis Same Procedure Performed Right breast lumpectomy with Mag seed localization Surgeon Radha Lopez MD Piano Technician Vonnie Sarmiento PA-C Anesthesia General Indications 42-year-old female who presents for preoperative visit for right breast DCIS. ? I had previously discussed different surgical options with patient and now she has been evaluated by both Oncology and Radiation she returns today to finalize plans for surgery.? Patient would like to proceed with a right breast lumpectomy at this point for surgical management of her right breast ductal carcinoma in Situ.? Risks of the procedure were discussed with the patient which included but not limited to risk of bleeding, infection, positive margins, possible need for additional procedures in the future, recurrence, asymmetry, wound healing problems, scar, pain as well as the risk of anesthesia.? All questions were answered patient agreed to proceed.? Findings lumpectomy radiographic confirmation obtained with faxitron images, showed magseed and biopsy clip in the upper portion of the specimen. Additional superior margin obtained in close proximity to the superior breast skin. Description of Procedure Patient was identified in the pre-operative area and brought to the OR suite. She underwent tumor localization previously by IR with magseed placement. She was laid supine in the operating table and sequential compression devices were applied. General anesthesia was induced without difficulties. The right chest was prepped and draped in a sterile fashion. The Sentimag probe was used to identify the area where the magseed was placed and an incision was made overlying this area. Dissection was carried down through the subcutaneous tissue into the breast tissue. The magseed and associated area of concern was identified with using sentimag probe, and a rim of normal breast tissue was excised along with the tumor as our lumpectomy specimen. Once the specimen was completely excised, it was oriented using surgical paint as the following: anterior green, superior red, inferior blue, medial yellow, lateral orange, and black posterior. An xray of the specimen was obtain with faxitron and images were sent to radiology for radiographic confirmation of Tumor, biopsy marker and magseed within the specimen. Review of faxitron images and scan with sentimag probe, indicated superior margin to be close, and an additional superior margin was excised and sent to pathology as permanent specimen. Note that the new superior margin was taken just proximal to dermis of superior breast skin, leaving a thin layer of adipose tissue to ensure the overlying skin vasculature was not compromised. Once the radiographic confirmation was received, the wound was irrigated with saline and hemostasis was assured. The deep dermal layer was approximated using interrupected 3-0 vicryl followed by 4-0 monocryl for the skin. Dermabond was applied followed by a surgical bra. Patient was awoken from anesthesia and taken to the recovery area in stable condition. All needles, instruments and sponge counts were correct as reported by the operating room staff. Patient tolerated the procedure well with no immediate complications. Estimated Blood Loss 5 Drains No Pathology Yes Complications No immediate complications Condition Stable Disposition PACU [facility] Billing Surgery - Charge Forward: Surgery Billing
[2023-03-26 14:13] LABS: Glucose Point of Care 115 mg/dl (65-105)
== END 2023-03-26 15:31 | disposition home or self-care (01) ==
PROVIDERS: PCP Nurse Practitioner; Visit Provider Surgery
PROC: (CPT 19301; principal; 2023-03-26 12:00)
DX: D05.11 Intraductal carcinoma in situ of right breast (principal); Z17.0 Estrogen receptor positive status [ER+]; I10 Essential (primary) hypertension; E66.01 Morbid (severe) obesity due to excess calories; Z68.43 Body mass index [BMI] 50.0-59.9, adult; Z79.85 Long-term (current) use of injectable non-insulin antidiabetic drugs
CPT/HCPCS: 19301; 36415; 76098; 80048; 82948; 88307; 88342; 88360; 93005; A9270; J0690; J1100; J2250; J2405; J2704; J3010; J7120; Q9968

== ENCOUNTER 2023-04-09 01:31 | Day surgery (SDC) | payer OTHER, SELFPAY ==
[2023-04-02 08:49] VITALS: BMI 51.4
--- NOTE | 2023-04-02 08:51 | PC.NURSE ---
Report to the Outpatient Waiting Room, entrance under the green pavilion located off [facility], at time 1100 on date 04/09/23. Planned Procedure Time: 1300. Time changes happen often and if your time is changed the preop area will call you the afternoon before. - You and your visitor will be asked to self-screen and do not enter if you have any COVID symptoms. - A mask is optional within the hospital at this time. Patients may have clear liquids (water, carbonated beverages, clear teas, apple juice) until 3 hours prior to surgery with a maximum of 20 ounces. - No food from midnight until time of surgery Take the following medications with a SIP of water the morning of surgery: BISOPROLOL DO NOT STOP ANY OF YOUR OTHER PRESCRIPTION MEDICATIONS PRIOR TO SURGERY ?EXCEPT THE FOLLOWING Medications to discontinue per physician: N/A Date to take last dose: N/A Please no make-up, nail serbian, hairspray, perfume, deodorant, or body powder the day of surgery. No jewelry (including any body piercings) or valuables the day of surgery, leave them at home. Please take a shower or bath the night before, or the morning of, surgery with an antibacterial soap. Wear comfortable, loose fitting clothing. - Jewelry must be removed prior to entering the operating room. Rings and piercings that are not removed may be cut off. - The hospital will not accept responsibility for valuables. - Please leave all valuables, including medications, at home the day of surgery. If you are going home after surgery, a licensed charter bus driver must drive you home. - NO public transportation without another adult if you receive anesthesia. - We recommend that an adult stay with you for 24 hours following discharge. - We also recommend that you do not drive, make important decision, drink alcoholic beverages, or take any drugs that were not prescribed by your health care provider for at least 24 hours after your discharge time. Follow any additional instructions given to you from your surgeon. If you or anyone in your household have experienced Covid symptoms in the past week, please notify your surgeon or the nurse liaison at the phone number below for possible testing. Telephone instructions given to PT - LIVE WALKER and asked if any additional questions and then verbalized understanding. Patient advised to call surgeon office or pre surgery nurse liaison [phone] if any additional questions.
[2023-04-09] VITALS (8 sets, daily range): BP systolic 120–142; BP diastolic 59–89; PULSE 88–109; RESP 14–20; TEMP 36.8–36.9; O2SAT 94–99
[2023-04-09] MEDS: ACETAMINOPHEN 500 MG TABLET 1000 MG PO (11:33)
[2023-04-09] MEDS: LACTATED RINGERS 1,000 ML 30 ML IV CONT ×2 (11:49→17:50)
--- NOTE | 2023-04-09 11:52 | WPDANESEPPF ---
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 Patient Data Age: 43 Gender: F Height: 1.65 m Weight: 140.1 kg Allergies Allergy/AdvReac Type Severity Reaction Status Date / Time No Known Allergies Allergy Verified 04/09/23 11:20 Home Medications Medication Instructions Recorded Confirmed Type atorvastatin 10 mg tablet 10 mg PO DAILY 01/27/23 04/02/23 History bisoprolol fumarate 5 mg tablet 5 mg PO DAILY 01/27/23 04/02/23 History lisinopril 5 mg tablet 5 mg PO DAILY 01/27/23 04/02/23 History tirzepatide 2.5 mg/0.5 mL 2.5 mg subcut WEEKLY 01/27/23 04/02/23 History subcutaneous pen injector (Mounjaro) tramadol 50 mg tablet 50 mg PO Q4H PRN pain #12 tabs 03/26/23 04/02/23 Rx Patient hx anesthesia problems: none Family hx anesthesia problems: none Results Review: All pre-operative results and documents have been reviewed as part of the pre-operative evaluation. FORMERLY [facility] Past Medical History Medical History Hypertension on admission to our unit; does not take any medications; states usually normal Super obesity Surgical History Surgical History H/O: hysterectomy Social History Social History Smoking status: Never smoker Second hand tobacco smoke exposure: No Alcohol intake: never Substance use: never Substance use type: does not use Lack of Transportation: No Lack of Food: Never True Current Housing: I Have Housing Concerned About Future Housing: No Difficulty Paying Gas/Electric Bills: No Difficulty Paying for Meds: No Currently Unemployed: No Education: Bachelor's Degree Difficulty w/ Childcare or Family Care: No Living arrangements: with family Spiritual care concerns: No Anes - Eval Final PreProcedure Day of Procedure 04/09/23 11:52 Patient weight: morbidly obese Heart: regular rate and rhythm Lungs: clear to auscultation Airway: Mallampati scale class II Neurological: alert and oriented Last oral intake: >/= 8 hours ASA classification: III Emergent: no Anesthetic plan: proceed Anesthesia type and monitoring: general LMA and standard monitoring Results Review: All pre-operative results and documents have been reviewed as part of the pre-operative evaluation. Informed Consent: The patient's anesthetic plan and its attendant risks and benefits were discussed with the patient/family/POA. Questions were solicited and answers provided to the satisfaction of the patient/family/POA.
[2023-04-09 11:54] LABS: Glucose Point of Care 113 mg/dl (65-105)
--- NOTE | 2023-04-09 14:36 | WPDHPUPDATE1 ---
History and Physical Update Update Date/Time: 04/09/23 14:36 History and Physical has been reviewed, including an updated exam of the patient. There are NO changes in the patient's condition. Risks, benefits, and alternatives have been discussed and questions answered. Patient agrees to proceed with procedure.
[2023-04-09] MEDS: ceFAZolin 3 GM/D5W 100 ML 100 ML IVPB (15:43)
[2023-04-09] MEDS: METHYLENE BLUE 0.5% INJ 10 ML AMPULE XX (16:07)
--- NOTE | 2023-04-09 16:09 | SUR.OPER ---
2ml Magtrace injected by Dr. Lopez into right breast
[2023-04-09] MEDS: BUPIVACAINE/EPINEPHRINE 0.5% 50 ML VIAL 30 ML INFILTRATE (17:31)
--- NOTE | 2023-04-09 17:38 | SUR.OPER ---
Axillary Node given to Ayden in lab. Remaining specimens placed in formalin per management
--- NOTE | 2023-04-09 17:39 | W.PM.PROC2 ---
Procedure Note - Detailed Date of Procedure 04/09/23 Pre-op Diagnosis Right breast invasive ductal carcinoma Post-op Diagnosis Same Procedure Performed Re-excision of medial and posterior right lumpectomy margin Injection of Magtrace and diluted methylene blue for sentinel lymph node biopsy Deep right axillary sentinel lymph node biopsy Surgeon Radha Lopez MD Customer Sales Advisor Vonnie Sarmiento PA-C Anesthesia General Indications 43-year-old female status post right lumpectomy initially for diagnosis of DCIS on core needle biopsy. Final path report for lumpectomy specimen showed a small focus of invasive ductal carcinoma at the medial margin as well as a small focus of DCIS at the posterior margin. She was recommended to undergo a right axillary lymph node and biopsy as well as re-excision of posterior and medial margin of the lumpectomy cavity. Risks of the procedure were discussed with the patient which included but not limited to risk of bleeding, infection, positive margin, recurrence, possible need for additional procedures in the future, asymmetry, wound healing problems, scar, pain as well as the risk of anesthesia. All questions were answered patient agreed to proceed. Description of Procedure Patient was identified in the preoperative holding area brought to the operating room suite. She was laid supine in the operating table sequential compression devices were applied. General anesthesia was induced without difficulty. The right chest and axillary areas were prepped and draped in a sterile fashion. Two mL of magtrace was injected in the subareolar plane as well as 1.5 cc of 1:1 diluted methylene blue injected in the periareolar subdermal plane. This area was massaged for approximately 15 minutes. The sentimag probe was used to find the area of highest activity in the axilla and a small incision was made overlying this area. Dissection was carried down through the subcutaneous tissue and the clavipectoral fascia was incised. The sentiment was again used to identify a node that was both hot and blue. This node was carefully excised using the LigaSure device. The sentimag probe was used to obtain a count the sentinel lymph node which was approximately 3500. The probe was used to scan the axilla to look for another lymph node that at least 10% of 3500 counts. No other node was identified and the wound was irrigated with saline hemostasis was assured. The clavipectoral fascia was approximated with a running 3-0 Vicryl, the deep dermal layer was then closed with interrupted 3-0 Vicryl and the skin was closed with a running 4-0 Monocryl in a subcuticular fashion. Attention was then turned to the previous lumpectomy incision which was reopened. I did not proceed to excise the posterior margin as well as the medial margins using the Bovie electrocautery. The new margin was inked for orientation and sent to pathology as a permanent specimen. The cavity was irrigated and hemostasis is assured. The incision was closed with 3-0 Vicryl for the deep dermal layer followed by 4-0 Monocryl for subcuticular running fashion. Dermabond was applied followed by a sterile dressing in the surgical bra. Patient was awoken from anesthesia taken to the recovery area in stable condition. All needles, instruments, and sponge counts were correct as reported by the operating room staff. Patient tolerated the procedure well with no immediate complications. Vonnie Sarmiento PA-C was present and required for retraction and positioned for the entirety of this case. Estimated Blood Loss 10 Drains No Pathology Yes Complications No immediate complications Condition Stable Disposition PACU [facility] Billing Surgery - Charge Forward: Surgery Billing
[2023-04-09 17:58] LABS: Glucose Point of Care 109 mg/dl (65-105)
[2023-04-09] MEDS: oxyCODONE HCL (*CRX) 5 MG TAB IR PO (18:52)
== END 2023-04-09 19:44 | disposition home or self-care (01) ==
PROVIDERS: PCP Nurse Practitioner; Visit Provider Surgery
PROC: (CPT 19301; principal; 2023-04-09 13:00)
DX: D05.11 Intraductal carcinoma in situ of right breast (principal); Z79.85 Long-term (current) use of injectable non-insulin antidiabetic drugs; E66.01 Morbid (severe) obesity due to excess calories; Z68.43 Body mass index [BMI] 50.0-59.9, adult
CPT/HCPCS: 19301; 38525; 38792; 82948; 88307; 88342; A9270; J0690; J1100; J2250; J2405; J2704; J3010; J7120; Q9968

== ENCOUNTER 2023-04-22 09:17 | Outpatient (CLI) | payer OTHER, SELFPAY ==
[2023-04-22 09:36] LABS: Basophils Percent Auto 0.4 % (0.2-1.2); Eosinophils Absolute Auto 0.1 K/mm3 (0-0.3); Eosinophils Percent Auto 1.3 % (0-4.4); Hematocrit 45.1 % (37.0-47.0); Hemoglobin 15.1 g/dL (12.0-15.0); Immature Granulocyte Absolute 0.05 K/mm3 (0.00-0.031); Immature Granulocyte Percent A 0.5 % (0-0.5); Lymphocytes Absolute Auto 2.53 K/mm3 (0.9-3.2); Lymphocytes Percent Auto 24.6 % (18.3-44.2); Mean Corpuscular HGB Conc 33.5 g/dl (32-36); Mean Corpuscular Hemoglobin 30.9 pg (26-34); Mean Corpuscular Volume 92.2 fl (80-100); Mean Platelet Volume 8.9 fl (7.4-10.4); Monocytes Absolute Auto 0.7 K/mm3 (0.1-0.6); Monocytes Percent Auto 7.2 % (2.6-8.5); Neutrophils Absolute Auto 6.8 K/mm3 (1.3-6.7); Platelet Count Result 297 k/mm3 (150-375); Red Blood Count 4.89 M/mm3 (4.2-5.4); White Blood Count 10.3 K/mm3 (4.5-10.0)
[2023-04-22 09:41] LABS: Blood Urea Nitrogen 16 mg/dL (8-26); Carbon Dioxide 26 mmol/L (22-30); Chloride 100 mmol/L (98-109); Estimated Glomerular Filt Rate > 60; Glucose 114 mg/dL (70-105); Sodium 137 mmol/L (138-146)
[2023-04-22 11:45] LABS: Alanine Aminotransferase 34 U/L (6-35); Albumin Level 4.2 g/dL (3.5-5.1); Alkaline Phosphatase 107 U/L (38-126); Anion Gap 8 mmol/L (8-16); Aspartate Amino Transferase 31 U/L (14-36); Blood Urea Nitrogen 17 mg/dL (7-17); Calcium 9.2 mg/dL (8.4-10.2); Carbon Dioxide 25 mmol/L (22-30); Chloride 101 mmol/L (98-107); Estimated Glomerular Filt Rate > 60; Glucose 111 mg/dL (65-110); Potassium 4.1 mmol/L (3.4-5.0); Sodium 134 mmol/L (137-145)
== END 2023-04-22 09:18 | disposition home or self-care (01) ==
LOC: ANHLAB 09:19
PROVIDERS: PCP Nurse Practitioner; Visit Provider Internal Medicine Hematology & Oncology
DX: D05.11 Intraductal carcinoma in situ of right breast (principal)
CPT/HCPCS: 36415; 80047; 80053; 85025

== ENCOUNTER → 2023-05-05 09:15 | Outpatient (CLI) | payer OTHER, SELFPAY ==
--- NOTE | ~2023-05-05 | MMUS_ITS ---
EXAMINATION: MM diagnostic esvin RT w nataly, US axilla RT HISTORY: History of right breast cancer TECHNIQUE: Additional 3-D tomosynthesis images of the right breast were performed and synthetic 2-D i mages were generated. CAD analysis was submitted and interpreted. High resolution Limited right axill [place] ultrasound was performed. COMPARISON: 03/18/2023 BREAST PARENCHYMAL COMPOSITION: BREAST PARENCHYMAL COMPOSITION: There are scattered areas of fibroglandular density. FINDINGS: MAMMOGRAPHIC FINDINGS: There are surgical changes in the lower inner quadrant of the right breast with associated surgical c lips and mass, likely postoperative seroma/hematoma. There is new area of asymmetric density in the r ight axillary region which may also be postoperative or post radiation therapy. Clinically correlate. ULTRASOUND: Limited right axillary ultrasound: In the right axilla there is a complex hypoechoic area with next p osterior attenuation and poorly defined margins. No internal vascularity. IMPRESSION: 1. Complex hypoechoic area in the right axilla corresponding to the asymmetry seen on mammography. Co rrelate for prior surgical history in the right axilla. If there is no surgical history of dislocatio n, ultrasound-guided biopsy is recommended. BI-RADS CATEGORY 4-SUSPICIOUS ABNORMALITY RECOMMENDATION: Ultrasound-guided right axillary biopsy recommended if there is no inappropriate clin ical history of interval surgery. If surgical history is present this may represent postoperative nia nge and short-term follow-up is recommended. Reviewed, dictated and finalized at location A. RPRISE PROJECT MANAGER IMPRESSION: 1. Complex hypoechoic area in the right axilla corresponding to the asymmetry s een on mammography. Correlate for prior surgical history in the right axilla. I f there is no surgical history of dislocation, ultrasound-guided biopsy is roberta mmended. BI-RADS CATEGORY 4-SUSPICIOUS ABNORMALITY RECOMMENDATION: Ultrasound-guided right axillary biopsy recommended if there is no inappropriate clinical history of interval surgery. If surgical history is present this may represent postoperative change and short-term follow-up is rec ommended.
== END ==
PROVIDERS: PCP Radiology Radiation Oncology; Visit Provider Radiology Radiation Oncology
DX: R92.8 Other abnormal and inconclusive findings on diagnostic imaging of breast (principal); Z85.3 Personal history of malignant neoplasm of breast; R92.2 Inconclusive mammogram
CPT/HCPCS: 76882; 77061; 77065; G0279

== ENCOUNTER 2023-06-27 10:26 | Outpatient (CLI) | payer OTHER, SELFPAY ==
[2023-06-27 10:36] LABS: Basophils Percent Auto 0.5 % (0.2-1.2); Eosinophils Absolute Auto 0.1 K/mm3 (0-0.3); Eosinophils Percent Auto 1.3 % (0-4.4); Hematocrit 44.6 % (37.0-47.0); Hemoglobin 14.8 g/dL (12.0-15.0); Immature Granulocyte Absolute 0.04 K/mm3 (0.00-0.031); Immature Granulocyte Percent A 0.5 % (0-0.5); Lymphocytes Absolute Auto 1.07 K/mm3 (0.9-3.2); Lymphocytes Percent Auto 12.3 % (18.3-44.2); Mean Corpuscular HGB Conc 33.2 g/dl (32-36); Mean Corpuscular Hemoglobin 31.2 pg (26-34); Mean Corpuscular Volume 93.9 fl (80-100); Mean Platelet Volume 8.5 fl (7.4-10.4); Monocytes Absolute Auto 0.8 K/mm3 (0.1-0.6); Monocytes Percent Auto 8.9 % (2.6-8.5); Neutrophils Absolute Auto 6.7 K/mm3 (1.3-6.7); Neutrophils Percent Auto 76.5 % (45.5-73.1); Platelet Count Result 246 k/mm3 (150-375); Red Blood Count 4.75 M/mm3 (4.2-5.4); Red Cell Distribution Width 13.1 % (11.5-14.5); White Blood Count 8.7 K/mm3 (4.5-10.0)
[2023-06-27 10:42] LABS: Blood Urea Nitrogen 18 mg/dL (8-26); Carbon Dioxide 27 mmol/L (22-30); Chloride 103 mmol/L (98-109); Estimated Glomerular Filt Rate > 60; Glucose 110 mg/dL (70-105); Ionized Calcium (POC) 1.16 mmol/L (1.11-1.31); Potassium 3.9 mmol/L (3.5-4.9); Sodium 140 mmol/L (138-146)
[2023-06-27 11:35] LABS: Alanine Aminotransferase 33 U/L (6-35); Albumin Level 3.9 g/dL (3.5-5.1); Alkaline Phosphatase 107 U/L (38-126); Anion Gap 8 mmol/L (8-16); Aspartate Amino Transferase 27 U/L (14-36); Bilirubin,Total 0.8 mg/dL (0.2-1.3); Blood Urea Nitrogen 18 mg/dL (7-17); Calcium 9.1 mg/dL (8.4-10.2); Carbon Dioxide 26 mmol/L (22-30); Chloride 104 mmol/L (98-107); Estimated Glomerular Filt Rate > 60; Glucose 112 mg/dL (65-110); Sodium 138 mmol/L (137-145)
== END 2023-06-27 10:27 | disposition home or self-care (01) ==
LOC: ANHLAB 10:28
PROVIDERS: PCP Radiology Radiation Oncology; Visit Provider Internal Medicine Hematology & Oncology
DX: D05.11 Intraductal carcinoma in situ of right breast (principal)
CPT/HCPCS: 36415; 80047; 80053; 85025

== ENCOUNTER 2023-09-26 10:31 | Outpatient (CLI) | payer OTHER, SELFPAY ==
[2023-09-26 10:45] LABS: Basophils Percent Auto 0.2 % (0.2-1.2); Eosinophils Absolute Auto 0.1 K/mm3 (0-0.3); Eosinophils Percent Auto 1.2 % (0-4.4); Hematocrit 44.6 % (37.0-47.0); Hemoglobin 14.8 g/dL (12.0-15.0); Immature Granulocyte Absolute 0.06 K/mm3 (0.00-0.031); Immature Granulocyte Percent A 0.7 % (0-0.5); Lymphocytes Absolute Auto 1.18 K/mm3 (0.9-3.2); Lymphocytes Percent Auto 14.6 % (18.3-44.2); Mean Corpuscular HGB Conc 33.2 g/dl (32-36); Mean Corpuscular Hemoglobin 31.2 pg (26-34); Mean Corpuscular Volume 94.1 fl (80-100); Mean Platelet Volume 8.6 fl (7.4-10.4); Monocytes Absolute Auto 0.7 K/mm3 (0.1-0.6); Monocytes Percent Auto 8.7 % (2.6-8.5); Neutrophils Percent Auto 74.6 % (45.5-73.1); Platelet Count Result 230 k/mm3 (150-375); Red Blood Count 4.74 M/mm3 (4.2-5.4); Red Cell Distribution Width 12.6 % (11.5-14.5); White Blood Count 8.1 K/mm3 (4.5-10.0)
[2023-09-26 10:49] LABS: Blood Urea Nitrogen 16 mg/dL (8-26); Carbon Dioxide 26 mmol/L (22-30); Chloride 99 mmol/L (98-109); Estimated Glomerular Filt Rate > 60; Glucose 353 mg/dL (70-105); Ionized Calcium (POC) 1.16 mmol/L (1.11-1.31); Potassium 4.3 mmol/L (3.5-4.9); Sodium 134 mmol/L (138-146)
[2023-09-26 11:44] LABS: Anion Gap 5 mmol/L (4-12); Blood Urea Nitrogen 16 mg/dL (7-17); Carbon Dioxide 25 mmol/L (22-30); Chloride 102 mmol/L (98-107); Estimated Glomerular Filt Rate > 60; Glucose 345 mg/dL (65-110); Potassium 4.3 mmol/L (3.4-5.0); Sodium 132 mmol/L (137-145)
== END 2023-09-26 10:32 | disposition home or self-care (01) ==
LOC: ANHLAB 10:33
PROVIDERS: PCP Radiology Radiation Oncology; Visit Provider Internal Medicine Hematology & Oncology
DX: D05.11 Intraductal carcinoma in situ of right breast (principal)
CPT/HCPCS: 36415; 80047; 80048; 85025

== ENCOUNTER 2023-10-06 08:53 | Outpatient (CLI) | payer OTHER, SELFPAY ==
--- NOTE | ~2023-10-06 | MMUS_ITS ---
EXAMINATION: MM diagnostic esvin RT w nataly, US breast RT complete HISTORY: Right breast malignancy; status post partial mastectomy, tamoxifen and radiation therapy TECHNIQUE: ML, MLO and CC 3-D tomosynthesis images of the right breast were performed and synthetic 2 -D images were generated. CAD analysis was submitted and interpreted. High resolution complete right breast ultrasound examination including all 4 quadrants and subareolar area was performed. COMPARISON: May 05, 2023 diagnostic right mammogram 01/22/2023 diagnostic right mammogram and limited right breast ultrasound examination BREAST PARENCHYMAL COMPOSITION: The breasts are heterogeneously dense, which may obscure small masses . FINDINGS: MAMMOGRAPHIC FINDINGS: Multiple surgical clips are noted in the upper and lower central and inner right breast, with associa mayra noncircumscribed increased density in the perioperative area. Additionally, there is accentuation of fibroglandular stroma throughout the right breast compared to 01/22/2023, in addition to diffuse mild skin thickening, most likely result of radiotherapy. No focal mass lesion or architectural distortion or malignant calcification is noted. ULTRASOUND: At 2:00 7 cm from the nipple in the area of the surgical scar there is a multi septated cystic area m easuring up to approximately 1.4 x 7.6 cm dimension consistent with postoperative seroma. There is so me increased vascularity in the postoperative area. No suspicious mass or shadowing is detected elsewhere IMPRESSION: 1. Postoperative changes; probable benign post-surgical and post radiation changes 2. 6 month follow-up diagnostic bilateral mammogram is recommended, with ultrasound if required BI-RADS category 3, probably benign findings. Reviewed, dictated and finalized at location A. IMPRESSION: 1. Postoperative changes; probable benign post-surgical and post radiation arias ges 2. 6 month follow-up diagnostic bilateral mammogram is recommended, with ultras ound if required BI-RADS category 3, probably benign findings.
== END 2023-10-06 08:54 ==
LOC: MICIMG 08:55
PROVIDERS: PCP Surgery; Visit Provider Surgery
DX: D05.11 Intraductal carcinoma in situ of right breast (principal)
CPT/HCPCS: 76641; 77061; 77065; G0279

== ENCOUNTER 2023-12-22 10:55 | Outpatient (CLI) | payer OTHER, SELFPAY ==
[2023-12-22 11:08] LABS: Basophils Percent Auto 0.2 % (0.2-1.2); Eosinophils Absolute Auto 0.1 K/mm3 (0-0.3); Eosinophils Percent Auto 1.2 % (0-4.4); Hemoglobin 14.5 g/dL (12.0-15.0); Immature Granulocyte Absolute 0.02 K/mm3 (0.00-0.031); Immature Granulocyte Percent A 0.2 % (0-0.5); Lymphocytes Absolute Auto 1.28 K/mm3 (0.9-3.2); Lymphocytes Percent Auto 15.2 % (18.3-44.2); Mean Corpuscular Volume 94.2 fl (80-100); Mean Platelet Volume 8.6 fl (7.4-10.4); Monocytes Absolute Auto 0.7 K/mm3 (0.1-0.6); Monocytes Percent Auto 7.7 % (2.6-8.5); Neutrophils Absolute Auto 6.4 K/mm3 (1.3-6.7); Neutrophils Percent Auto 75.5 % (45.5-73.1); Platelet Count Result 237 k/mm3 (150-375); Red Blood Count 4.67 M/mm3 (4.2-5.4); Red Cell Distribution Width 12.3 % (11.5-14.5); White Blood Count 8.4 K/mm3 (4.5-10.0)
[2023-12-22 17:21] LABS: Anion Gap 8 mmol/L (4-12); Blood Urea Nitrogen 15 mg/dL (7-17); Calcium 9.3 mg/dL (8.4-10.2); Carbon Dioxide 25 mmol/L (22-30); Chloride 106 mmol/L (98-107); Estimated Glomerular Filt Rate > 60; Glucose 107 mg/dL (65-110); Potassium 4.3 mmol/L (3.4-5.0); Sodium 139 mmol/L (137-145)
[2023-12-23 13:23] LABS: CA 15-3 5 U/mL (<32)
== END 2023-12-22 10:56 | disposition home or self-care (01) ==
LOC: ANHLAB 10:56
PROVIDERS: Nurse Practitioner Family; PCP Surgery; Visit Provider Internal Medicine Hematology & Oncology
DX: C50.111 Malignant neoplasm of central portion of right female breast (principal)
CPT/HCPCS: 36415; 80048; 85025; 86300

== ENCOUNTER 2024-07-13 09:46 | Outpatient (CLI) | payer OTHER, SELFPAY ==
--- NOTE | ~2024-07-13 | MM_ITS ---
EXAMINATION: MM diagnostic esvin BI w nataly HISTORY: History of right breast cancer TECHNIQUE: 3-D tomosynthesis images of the breasts were performed and synthetic 2-D images were gener ated. CAD analysis was submitted and interpreted. COMPARISON: 10/06/2023, 07/05/2022 BREAST PARENCHYMAL COMPOSITION:Not Dense. There are scattered areas of fibroglandular density. FINDINGS: Parenchymal pattern of the breasts is essentially unchanged. Stable postoperative change in the posterior right breast. No suspicious abnormalities of the left breast. No suspicious calcificat ions. IMPRESSION: No mammographic evidence for malignancy. Stable postoperative change right breast. BI-RADS Category 2: Benign finding(s). Reviewed, dictated and finalized at location . RIAL LABORATORY SUPERVISOR IMPRESSION: No mammographic evidence for malignancy. Stable postoperative change right [address]. BI-RADS Category 2: Benign finding(s).
== END 2024-07-13 09:47 | disposition home or self-care (01) ==
PROVIDERS: PCP Surgery; Visit Provider Physician Assistant Surgical
DX: C50.911 Malignant neoplasm of unspecified site of right female breast (principal); R92.0 Mammographic microcalcification found on diagnostic imaging of breast; R92.8 Other abnormal and inconclusive findings on diagnostic imaging of breast
CPT/HCPCS: 77062; 77066; G0279

== ENCOUNTER 2024-09-15 11:46 | Outpatient (CLI) | payer OTHER, SELFPAY ==
[2024-09-15 11:57] LABS: Basophils Percent Auto 0.3 % (0.2-1.2); Eosinophils Absolute Auto 0.1 K/mm3 (0-0.3); Eosinophils Percent Auto 0.8 % (0-4.4); Hematocrit 39.9 % (37.0-47.0); Hemoglobin 13.6 g/dL (12.0-15.0); Immature Granulocyte Absolute 0.03 K/mm3 (0.00-0.031); Immature Granulocyte Percent A 0.3 % (0-0.5); Lymphocytes Absolute Auto 2.03 K/mm3 (0.9-3.2); Lymphocytes Percent Auto 21.3 % (18.3-44.2); Mean Corpuscular HGB Conc 34.1 g/dl (32-36); Mean Corpuscular Hemoglobin 31.6 pg (26-34); Mean Corpuscular Volume 92.6 fl (80-100); Monocytes Absolute Auto 0.8 K/mm3 (0.1-0.6); Neutrophils Absolute Auto 6.6 K/mm3 (1.3-6.7); Neutrophils Percent Auto 69.3 % (45.5-73.1); Platelet Count Result 215 k/mm3 (150-375); Red Blood Count 4.31 M/mm3 (4.2-5.4); Red Cell Distribution Width 12.6 % (11.5-14.5); White Blood Count 9.5 K/mm3 (4.5-10.0)
--- OUTSIDE RECORDS SUMMARY | 2024-09-15 13:31 | XMS_ITS | Encounter Summary ---
Author Organization [facility] Address [address] [place] [address] Care Team Providers Care Mid Level Practitioner Name Role Phone Debra Olvera NP Primary Care Provider [phone] Encounter Details Date Type Department Care Team (Late Contact Info) Description 10/08/2023 Woodpecker Education Message [employer] [facility] Family & Internal Medicine [address] [address] [place], [facility] Provider appointment Social History Tobacco Use Types Packs/Day Years Used Date Smoking Tobacco: Never Passive Smoke Exposure: Never Smokeless Tobacco: Never Alcohol Use Standard Drinks/Week Comments No 0 (1 standard drink = 0.6 oz pur e alcohol) AUDIT-C Answer Date Recorded Frequency of Alcohol Consumption Never 05/22/2018 Average Number of Drinks Not on file 018 Frequency of Binge Drinking Not on file 05/01 PHQ-2 Answer Date Recorded Patient Health Questionnaire-2 Score 0 09/25/2023 Education Answer Date Recorded What is the highest level of school you have completed or the highest degree you have received? 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 [place], [place] [id number] documented as of this encounter Visit Diagnoses Not on filedocumented in this encounter Additional Health Concerns Assessment Noted Time PHQ-9 Depression Total Score: 0 09/25/19 22 11:09 AM CDT documented as of this encounter Care Teams Mid Level Practitioner Relationship Specialty Start [place] [address] [facility] [address] [place], [place] [id number] PCP - General Nurse Practitioner Family 07/14/23 documented as of this encounter
--- OUTSIDE RECORDS SUMMARY | 2024-09-15 13:31 | XMS_ITS | Encounter Summary ---
Author Organization [facility] Address [address] [place] [address] Care Team Providers Care Irrigation Installation Specialist Name Role Phone Debra Olvera NP Primary Care Provider [phone] Encounter Details Date Type Department Care Team (Late st Contact Info) Description 10/02/2023 invendo medical Message Enc [facility] Family & Internal Medicine [address] [address] [place], 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 [place], [place] [id number] documented as of this encounter Visit Diagnoses Not on filedocumented in this encounter Additional Health Concerns Assessment Noted Time PHQ-9 Depression Total Score: 0 09/25/19 22 11:09 AM CDT documented as of this encounter Care Teams Irrigation Installation Specialist Relationship Specialty [place] [address] [facility] [address] [place] [address] PCP - General Nurse Practitioner Family 07/14/23 documented as of this encounter
--- OUTSIDE RECORDS SUMMARY | 2024-09-15 13:31 | XMS_ITS | Encounter Summary ---
Author Organization [facility] Address [address] [place] [address] Care Team Providers Care Emery Wheel Worker Name Role Phone Adeline Dave BIOMEDICAL SPECIALIST Primary Care Provider [phone] Debra Olvera BIOMEDICAL SPECIALIST Primary Care Provider [phone] Encounter Details Date Type Department Care Team (Late st Contact Info) Description 11/19/2022 Social Insight Message Enc [facility] Family & Internal Medicine [facility] [address] [place] [address] [place] [address] [facility], [address] [place] [address] Handicap placard Social History Tobacco Use Types Packs/Day Years Used Date Smoking Tobacco: Never Smokeless Tobacco: Never Alcohol Use Standard Drinks/Week Comments No 0 (1 standard drink = 0.6 oz pur e alcohol) AUDIT-C Answer Date Recorded Frequency of Alcohol Consumption Never 05/22/2018 Average Number of Drinks Not on file 018 Frequency of Binge Drinking Not on file 05/01 PHQ-2 Answer Date Recorded Patient Health Questionnaire-2 Score 0 11/13/2022 Education Answer Date Recorded What is the [...] 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 No / Unsure 11/13/2022 7:08 AM CDT documented as of this encounter Progress Notes * Navin Ureña RN - 11/19/2022 1:50 PM CDT Please advise. documented in this encounter Plan of Treatment Upcoming Encounters Date Type Department Care Team (Late st Contact Info) Description 11/08/2024 3:20 PM CDT Office Visit [facility] Family & Internal Medicine [facility] [address] [place] [address] [place] [address] [facility] [address] [place] [address] documented as of this encounter Visit Diagnoses Not on filedocumented in this encounter Additional Health Concerns Infection Onset Date Last Indicated Resolved Time COVID-19 Rule Out 06/16/2023 06/16/2023 06/16/2023 3:56 PM CABLE DRILLER COVID-19 Rule Out 06/16/2023 06/16/2023 06/16/2023 3:57 PM CABLE DRILLER COVID-19 Rule Out 06/16/2023 06/16/2023 06/16/2023 3:58 PM CABLE DRILLER COVID-19 Rule Out 06/16/2023 06/16/2023 06/16/2023 4:56 PM CABLE DRILLER Assessment Noted Time PHQ-9 Depression Total Score: 0 09/25/19 22 11:09 AM CDT documented as of this encounter Care Teams Emery Wheel Worker Relationship Specialty [place] [address] [facility], [address] [place] [address] PCP - General Nurse Practitioner Family 10/04/2206/30 [place] [address] [facility] [address] [place] [address] PCP - General Nurse Practitioner Family 07/14/23 documented as of this encounter
--- OUTSIDE RECORDS SUMMARY | 2024-09-15 13:31 | XMS_ITS | Encounter Summary ---
Author Organization [facility] Address [address] [place] [address] Care Team Providers Care Language Asst Name Role Phone Debra Olvera NP Primary Care Provider [phone] Encounter Details Date Type Department Care Team (Late st Contact Info) Description 11/06/2023 Triggit Message Enc [facility] Family & Internal Medicine [facility] [address] [place] [address] [place], [facility] Provider ozempic Social History Tobacco Use Types Packs/Day Years [...] Date Recorded Patient Health Questionnaire-2 Score 0 10/20/2023 Education Answer Date Recorded What is the [...] 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 [address] [place] [address] documented as of this encounter Visit Diagnoses Not on filedocumented in this encounter Additional Health Concerns Assessment Noted Time PHQ-9 Depression Total Score: 0 10/20/19 24 9:44 AM CDT documented as of this encounter Care Teams Language Asst Relationship Specialty [place] [address] [facility] [facility] [address] [place] [address] PCP - General Nurse Practitioner Family 07/14/23 documented as of this encounter
--- OUTSIDE RECORDS SUMMARY | 2024-09-15 13:31 | XMS_ITS | Encounter Summary ---
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 Not on file Not on f ile documented as of this encounter Plan of Treatment Upcoming Encounters Date Type Department Care Team (Late st Contact Info) Description 11/08/2024 3:20 PM CDT Office Visit [facility] Family & Internal Medicine [facility] [address] [place] [phone] Debra Olvera NP [address] [place], [place] [phone] documented as of this encounter Visit Diagnoses Not on filedocumented in this encounter Additional Health Concerns Assessment Noted Time PHQ-9 Depression Total Score: 0 09/25/19 22 11:09 AM CDT documented as of this encounter Care Teams Glassworker Relationship Specialty Start Date End Date Debra Olvera NP [address] [place] [address]. [place] [address] PCP - General Nurse Practitioner Family 07/14/23 documented as of this encounter
--- OUTSIDE RECORDS SUMMARY | 2024-09-15 13:31 | XMS_ITS | Encounter Summary ---
Author Organization [facility] Address [address] [place] [address] Care Team Providers Care Electrical And Instrument Engineer Name Role Phone Rui Wilkins MD Primary Care Provider U Adeline Becerra POCKETED SPRING ASSEMBLER Primary Care Provider [phone] Debra Olvera POCKETED SPRING ASSEMBLER Primary Care Provider [phone] Encounter Details Date Type Department Care Team (Late st Contact Info) Description 08/07/2022 SANpulse Techn[employer]iest Message Enc [facility] Family & Internal Medicine [address] [address] Rui Wilkins MD Bronchitis Social History Tobacco Use Types Packs/Day Years Used Date Smoking Tobacco: Never Smokeless Tobacco: Never Alcohol Use Standard Drinks/Week Comments No 0 (1 standard drink = 0.6 oz pur e alcohol) AUDIT-C Answer Date Recorded Frequency of Alcohol Consumption Never 05/22/2018 Average Number of Drinks Not on file 018 Frequency of Binge Drinking Not on file 05/01 PHQ-2 Answer Date Recorded PHQ-2 Score - If the patient scores above 3, please move on to questions 3-9 0 09/24/2021 Education Answer Date Recorded What is the [...] 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 [place], [place] [id number] documented as of this encounter Visit Diagnoses Not on filedocumented in this encounter Additional Health Concerns Infection Onset Date Last Indicated Resolved Time COVID-19 Rule Out 06/16/2023 06/16/2023 06/16/2023 3:56 PM PARAPROFESSIONAL AIDE TEACHER COVID-19 Rule Out 06/16/2023 06/16/2023 06/16/2023 3:57 PM PARAPROFESSIONAL AIDE TEACHER COVID-19 Rule Out 06/16/2023 06/16/2023 06/16/2023 3:58 PM PARAPROFESSIONAL AIDE TEACHER COVID-19 Rule Out 06/16/2023 06/16/2023 06/16/2023 4:56 PM PARAPROFESSIONAL AIDE TEACHER Assessment Noted Time PHQ-9 Depression Total Score: 0 09/25/19 22 11:09 AM CDT documented as of this encounter Care Teams Electrical And Instrument Engineer Relationship Specialty Start Date End Date Rui Wilkins MD PCP - General INTERNAL MEDICINE 04/08/18 10/03/22 [place] [address] [facility], [address] [place], [place] [phone] PCP - General Nurse Practitioner Family 10/04/2206/30 [place] [address] [facility] [address] [place], [place] [phone] PCP - General Nurse Practitioner Family 07/14/23 documented as of this encounter
--- OUTSIDE RECORDS SUMMARY | 2024-09-15 13:31 | XMS_ITS | Encounter Summary ---
Author Organization [facility] Address [address] [place] [address] Care Team Providers Care Corporate Legal Secretary Name Role Phone Adeline Dave CARDIOTHORACIC SURGEON Primary Care Provider [phone] Debra Olvera CARDIOTHORACIC SURGEON Primary Care Provider [phone] Encounter Details Date Type Department Care Team (Late st Contact Info) Description 10/24/2022 Phreesia Message Enc [facility] Medical Group Family & Internal Medicine [address] [address] [place], [facility] Provider Justina Social History Tobacco Use Types Packs/Day Years [...] 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 [place] [address] documented as of this encounter Visit Diagnoses Not on filedocumented in this encounter Additional Health Concerns Infection Onset Date Last Indicated Resolved Time COVID-19 Rule Out 06/16/2023 06/16/2023 06/16/2023 3:56 PM CATERING ASSOCIATE COVID-19 Rule Out 06/16/2023 06/16/2023 06/16/2023 3:57 PM CATERING ASSOCIATE COVID-19 Rule Out 06/16/2023 06/16/2023 06/16/2023 3:58 PM CATERING ASSOCIATE COVID-19 Rule Out 06/16/2023 06/16/2023 06/16/2023 4:56 PM CATERING ASSOCIATE Assessment Noted Time PHQ-9 Depression Total Score: 0 09/25/19 22 11:09 AM CDT documented as of this encounter Care Teams Corporate Legal Secretary Relationship Specialty [place] [address] [facility], [address] [place] [address] PCP - General Nurse Practitioner Family 10/04/2206/30 [place] [address] [facility] [address] [place] [address] PCP - General Nurse Practitioner Family 07/14/23 documented as of this encounter
--- OUTSIDE RECORDS SUMMARY | 2024-09-15 13:31 | XMS_ITS | Clinical Summary ---
Author Organization [facility] Address [address] [place] [address] Care Team Providers Care Supervisor Airplane Flight Attendant Name Role Phone Debra Olvera NP Primary Care Provider Allergies Active Allergy Reactions Criticality Noted Date Comments Empagliflozin Headache Low 10/20/2023 Medications tamoxifen (NOLVADEX) 20 MG tablet Take 1 tablet by mouth daily. 4 Active atorvastatin (LIPITOR) 10 MG tabletIndications:M ixed hyperlipidemia Take 1 tablet (10 mg total) by mouth nightly at bedtime. at bedtime 90 tablet 3 4 Active bisoprolol (ZEBETA) 5 MG tabletIndications:B enign hypertension,Intrac table migraine with aura without status migrainosus Take 1 tablet (5 mg total) by mouth daily. 90 tablet 3 4 Active lisinopril-hydroCHL OROthiazide (ZESTORETIC) 10-12.5 MG tabletIndications:B enign hypertension Take 1 tablet by mouth daily. 90 tablet 3 4 Active tirzepatide (MOUNJARO) 15 MG/0.5ML injectionIndication s:Diabetes Mellitus Inject 15 mg into the skin every 7 days. 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 Osteoarthritis, unspecified osteoarthritis type, unspecified site 06/25/2021 Type 2 diabetes mellitus wit hout complication, without long-term current use of insulin ([facility]) 07/21/2020 Benign hypertension 05/28/2017 Morbid obesity with BMI of 50.0-59.9, adult 05/01 Metabolic syndrome 01/29/2017 Hyperglycemia 01/27/2017 Classic migraine with aura 04/21/2014 Resolved Problems Problem Noted Date Diagnosed Date Resolved Date Encounter for screening colonoscopy 05/05/2024 05/10/2024 Encounter for screening colonoscopy 05/05/2024 06/21/2024 Encounter for screening colonoscopy 05/05/2024 06/28/2024 Encounter for screening colonoscopy 05/05/2024 07/12/2024 Encounter for screening colonoscopy 05/05/2024 07/19/2024 Encounter for screening colonoscopy 12/02/2023 12/08/2023 Encounter for screening colonoscopy 12/02/2023 01/12/2024 Encounter for screening colonoscopy 12/02/2023 01/19/2024 Upper respiratory tract infe ction, unspecified type 08/16/2022 10/20/2023 Left ear pain 09/24/2021 03/25/2022 BMI 60.0-69.9, adult 07/21/2020 021 Endometriosis 07/21/2020 10/20/2023 Health care maintenance 04/21/202003/31 Nausea 12/11/2018 03/25/2022 Vaginal bleeding 12/11/2018 03/25/2022 Encounters Date Type Department Care Team Description 08/02/2024 3:20 PM MACHINE LOAD CLERK Office Visit [facility] Family & Internal Medicine [address] [address] Debra Olvera, NATHALY Physical 08/02/2024 Scan [facility] SRV[facility] Scanned, [facility] 08/02/2024 Travel 07/16/2024 10:02 AM MACHINE LOAD CLERK - 07/16/2024 10:44 AM MACHINE LOAD CLERK Surgery [facility] [address] [place] [address] Jose L Arauz MD COLONOSCOPY WITH BIOPSIES 07/16/2024 9:56 AM MACHINE LOAD CLERK Anesthesia Event [facility] [address] [place] [address] Kary Conte, Karin Nicholson CRNA 07/16/2024 7:58 AM MACHINE LOAD CLERK - 07/16/2024 11:10 AM MACHINE LOAD CLERK Hospital Encounter [facility] [id number] [place] [address] Jose L Arauz MD Discharge Disposition: Home or Self Care (Routine Discharge) 07/16/2024 Travel from Last 3 Months Immunizations Name Administration Dates Next Due Fluzone 6 Months+ Quad (0.5 mL Prefilled Syringe) 03/17/2023,03/24/2020 Influenza (Fluarix) 04/24/2018,05/28/2017 Influenza (Generic) 03/13/2024,05/03/2013 Influenza Adult (Generic) 05/01/2022,12/2020,03/24/2020, 018,05/28/2017 PFIZER COVID-19 (GATES CAP), MRNA, LNP-S, PF, 30 MCG/0.3 ML CEFERINO-SUCROSE, IM 08/03/2021 PFIZER COVID-19 (ORIGINAL FORMULATION, PURPLE CAP) mRNA, LNP-S, PF, 30 MCG/0.3 ML DOSE 10/19/2020,09/28/2020,09/16/2020 Tdap (Generic) 12/24/2021 Family History Medical History Relation Comments No Known Problems Brother No Known Problems Daughter Arthritis Father Heart Disease Father Hypertension Father OR Father Breast Cancer Maternal Aunt No Known Problems Maternal Grandfather No Known Problems Maternal Grandmother No Known Problems Maternal Uncle Arthritis Mother Breast Cancer Mother Cancer Mother No Known Problems Other No Known Problems Paternal Aunt OR Paternal Grandfather Ovarian Cancer Paternal Grandmother Diabetes Paternal Uncle No Known Problems Sister No Known Problems Son Relation Status Comments Brother Daughter Father Alive Maternal Aunt Maternal Grandfather Maternal Grandmother Maternal Uncle Mother Alive Other Paternal Aunt Paternal Grandfather Paternal Grandmother Paternal Uncle Sister Son Social History Tobacco Use Types Packs/Day Years Used Date Smoking Tobacco: Never Passive Smoke Exposure: Never Smokeless Tobacco: Never Tobacco Cessation:Counseling Given: Not Answered Alcohol Use Standard Drinks/Week Comments No 0 (1 standard drink = 0.6 oz pur e alcohol) AUDIT-C Answer Date Recorded Frequency of Alcohol Consumption Never 05/22/2018 Average Number of Drinks Not on file 018 Frequency of Binge Drinking Not on file 05/01 PHQ-2 Answer Date Recorded Patient Health Questionnaire-2 Score 0 08/02/2024 Education Answer Date Recorded What is the [...] 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 Not on file Not on f ile Last Filed Vital Signs Vital Sign Reading Time Taken Comments Blood Pressure 115/74 08/02/2024 3:19 PM MACHINE LOAD CLERK Pulse 81 08/02/2024 3:19 PM MACHINE LOAD CLERK Temperature 37.3 C (99.1 F) 08/02/2024 3:19 PM MACHINE LOAD CLERK Respiratory Rate 18 08/02/2024 3:19 PM MACHINE LOAD CLERK Oxygen Saturation 99% 08/02/2024 3:19 PM MACHINE LOAD CLERK Inhaled Oxygen Concentration - - Weight 129.3 kg (285 lb) 08/02/2024 3:19 PM MACHINE LOAD CLERK Height 165.1 cm (5' 5 ) 08/02/2024 3:19 PM MACHINE LOAD CLERK Body Mass Index 47.43 08/02/2024 3:19 PM MACHINE LOAD CLERK Plan of Treatment Upcoming Encounters Date Type Department Care Team (Late st Contact Info) Description 11/08/2024 3:20 PM CDT Office Visit [facility] Family & Internal Medicine - [place] [id number] [place] [phone] [place] [address] [facility] [address] [place] [address] Health Maintenance Due Date Last Done Comments Pneumococcal Vaccine: Pediatrics (0 to 5 Years) and At-Risk Patients (6 to 64 Years) (1 of 2 - PCV) 1984 Diabetes: Retinopathy Eye Exam 1996 Hepatitis B Vaccines (1 of 3 - 19+ 3-dose series) 1997 Annual Physical 11/14/2023 11/13/2022 COVID-19 Vaccine ( season) 2024 08/03/2021, 10/19/2020, 09/28/2020, Additional history exists Lipid Panel 05/06/2024 05/06/2023, 10/28, 06/26/2020 Kidney Health Evaluation 10/19/2024 10/20/2023 Hemoglobin A1C 11/09/2024 05/12/2024, 12/29, 10/20/2023, Additional history exists Mammogram Screening 10/05/2025 10/06/2023, 10/03/2021, 07/27/2020, Additional history exists DTaP, Tdap and Td Vaccines (2 - Td or Tdap) 12/25/2031 12/24/2021 Colorectal Cancer Screening Colonoscopy (10 Years) 07/16/2034 07/16/2024, Hepatitis C 11/13/2052 Postponed from 1996 (Patient Refused) Influenza Adult Completed 03/13/2024, 02/28, 05/01/2022, Additional history exists PHQ-2 (Physician [place]) Completed 08/02/2024 Meningococcal B Vaccine Aged Out No l onger eligible based on patient's age to complete this topic Meningococcal Vaccine Aged Out No channing meir eligible based on patient's age to complete this topic RSV Immunizations Under 20 Months Aged Out No longer eligible based on patient's age to complete this topic Procedures Procedure Name Priority Date/Time Associated Diagnosis Comments COLONOSCOPY WITH BIOPSY 07/16/2024 9:56 AM MACHINE LOAD CLERK Encounter for screening colonoscopy Case Notes C POCT GLUCOSE - VORA DOCKED DEVICE Routine 07/16/2024 8:24 AM MACHINE LOAD CLERK COLONOSCOPY Routine 07/16/2024 8:02 AM MACHINE LOAD CLERK PATHOLOGY Routine 07/16/2024 12:00 AM MACHINE LOAD CLERK HEMOGLOBIN, GLYCOSYLATED Routine 05/12/2024 Type 2 diabetes mellitus without complication, without long-term current use of insulin ([facility]) MAMMOGRAM GENERIC (SCAN ORDER) 10/06/2023 LIPID PANEL Routine 05/06/2023 7:50 AM MACHINE LOAD CLERK COLONOSCOPY Routine MACHINE LOAD CLERK from Last 3 Months or Most Recently Relevant to Health Maintenance Results * POCT glucose (07/16/2024 8:24 AM MACHINE LOAD CLERK) GLUCOSE POC 106 70 - 110 mg/dL 07/16/2024 8:29 AM MACHINE LOAD CLERK [facility] 07/16/2024 8:24 AM MACHINE LOAD CLERK us Jose L Arauz MD POCT ORDERABLES - DEVICE Fin al Result [facility] [address] [place] [address], * Pathology (07/16/2024 12:00 AM MACHINE LOAD CLERK) PATHOLOGY [facility] Department of Laboratory Medicine [address] [place] [phone] , extension [phone] Pathology Report Surgical Pathology Report Name: KENTON WALKER Specimen #: [id number] Age: 10 1980 (Age: 44) Location: [facility] Sex: F Procedure Date: 07/16/2024 Hospital #: [id number] Date Received: 07/19/2024 Date Reported: 07/20/2024 Provider: JOSE L RAAUZ MD Source: Colon, proximal transverse and hepatic flexure, biopsies Clinical History: Screening colonoscopy. FINAL DIAGNOSIS: Colon, polyps at proximal transverse/hepat ic flexure, biopsies: -Fragments of tubular adenoma. Gross Description: Received in formalin, labeled with a patient label and as polyp biopsies proximal transverse/hepat ic flexure are 4 pieces of white-mckeon tissue ranging from 0.1 to 0.2 cm. The specimen is entirely submitted in cassette 1. Gross examination (when applicable), interpretation, and sign out were performed at [facility], [address] [place] [id number]. Electronically Signed Out FAN GUTIERREZ MD [facility] TISSUE COLON STRUCTURE / Unknown 07/16/2024 10:09 AM MACHINE LOAD CLERK Jose L Arauz MD PATHOLOGY/CYTOLOGY ORDERABLE S Final Result Performing Organization Address City/[facility]/ZIP Co de Phone Number [facility] [address] [place], [place] [address], [phone] * HEMOGLOBIN, GLYCOSYLATED (05/12/2024) HGB A1C 5.6 % -[phone] [facility] 05/12/2024 Debra Olvera NP LABORATORY Final Result Performing Organization Address [facility] Co de Phone Number [phone] [facility]WORK[facility]UAN[facility] [address] [place] [address], [place] [phone] * MAMMOGRAM GENERIC (SCAN ORDER) (10/06/2023) Anatomical Region Laterality Modality Other 10/06/2023 [facility] Scanned SCANNING Final Resu lt * (ABNORMAL) LIPID PANEL (05/06/2023 7:50 AM MACHINE LOAD CLERK) CHOLESTEROL 164 <200 mg/dL [facility] HDL 46(L) > OR = 50 mg/dL [facility] TRIGLYCERIDES 100 <150 mg/dL [facility] LDL (CALCULATED) 98 mg/dL (calc) [facility] Comment: Reference range: <100 Desirable range <100 mg/dL for primary prevention; <70 mg/dL for patients with CHD or diabetic patients with > or = 2 CHD risk factors. LDL-C is now calculated using the Yolanda calculation, which is a validated novel method providing better accuracy than the Friedewald equation in the estimation of LDL-C. Jesse SS et al. ANA. 2013;310(19): 9654-1404 (http://education.[employer].MaxVision/faq/IIV598) CHOL/HDL RATIO 3.6 <5.0 (calc) [facility] NON HDL CHOLESTEROL 118 <130 mg/dL (calc) [facility] Comment: For patients with diabetes plus 1 major ASCVD risk factor, treating to a non-HDL-C goal of <100 mg/dL (LDL-C of <70 mg/dL) is considered a therapeutic option. 05/06/2023 7:50 AM MACHINE LOAD CLERK 05/06/2023 7:52 AM MACHINE LOAD CLERK Narrative [facility] - HEAVEN ORDERS - 05/07/2023 2:10 AM MACHINE LOAD CLERK FASTING:YES FASTING: YES Resulting Agency Comment Performing Organization Information: Site ID: [id number] Name: [facility] Address: [address] [place] [id number] Director: Shelly Rice MD Adeline Dave NP LABORATORY Final Result Copyright Agent - [facility] Copyright Agent [address] [id number] * Colonoscopy ( MACHINE LOAD CLERK) Narrative [facility] TO EPIC CONVERSION - MACHINE LOAD CLERK Documented hx of procedure Procedure Note Ledy Blue MD - 05/03/2018 Documented hx of procedure us Generic Conversion Md BLUE GI PROCEDURE ORDERABLES Final Result Performing Organization Address City/[facility]/ZIP Co de Phone Number [facility] TO EPIC CONVERSION from Last 3 Months or Most Recently Relevant to Health Maintenance Insurance [employer] Care Teams Supervisor Airplane Flight Attendant Relationship Specialty Start [place] [address] [place] [address] PCP - General Nurse Practitioner Family 07/14/23
--- OUTSIDE RECORDS SUMMARY | 2024-09-15 13:31 | XMS_ITS | Clinical Summary ---
Author Organization [facility] Address [address] [place] [place] [address] Care Team Providers Care Hand Trucker Name Role Phone Rui Wilkins MD Primary Care Provider + Source Comments [facility],non-owned Affiliates and Associated Physician Practices is amultiple site organization consisting of ambulatory clinics and hospital sitesin [place], [place], [place] and [place]. This disclosure is being madepursuant to the Care Everywhere program and may not contain all information available regarding this patient. Last updated 18.[facility] Allergies No known active allergies Medications * Be aware that medications may not be up to date on this document. Alwaysverify current medications with the patient. Medication Sig Dispensed Refills Start Date End Date Status dulaglutide (TRULICITY) 1.5 MG/0.5ML injection Inject 1.5 mg subcutaneously every 7 days Active lisinopril-hydroCHL OROthiazide (PRINZIDE; ZESTORETIC) 10-12.5 MG tablet Take 1 tablet by mouth once daily 01/05/2021 Active dulaglutide (TRULICITY) 4.5 MG/0.5ML injection Inject 4.5 mg subcutaneously every 7 days 04/06/2021 Active albuterol HFA (PROVENTIL; VENTOLIN; PROAIR) 108 (90 Base) MCG/ACT inhalerIndications: Acute bronchitis, unspecified organism Inhale 2 (two) puffs by mouth every 6 hours as needed for Wheezing or Cough 1 g 05/08/2021 Active fluticasone propionate (FLONASE) 50 MCG/ACT nasal sprayIndications:Ac [place] sinusitis, recurrence not specified, unspecified location Constable 2 (two) sprays into each nostril once daily 1 Each 05/08/2021 Active Active Problems Problem Noted Date Diagnosed Date Endometriosis 07/21/2020 Type 2 diabetes mellitus wit hout complication, without long-term current use of insulin 07/21/2020 Nausea 12/11/2018 Vaginal bleeding 12/11/2018 Benign hypertension 05/28/2017 BMI 50.0-59.9, adult 05/28/2017 Metabolic syndrome 01/29/2017 Hyperglycemia 01/27/2017 Classic migraine with aura 04/21/2014 Social History Tobacco Use Types Packs/Day Years Used Date Smoking Tobacco: Never Smokeless Tobacco: Never Sex and Gender Information Value Date Recorded Sex Assigned at Not on file Gender Identity Not on file Sexual Orientation Not on file Last Filed Vital Signs Vital Sign Reading Time Taken Comments Blood Pressure 128/82 05/08/2021 11:41 AM VENETIAN BLIND TAPE CUTTER Pulse 92 05/08/2021 11:41 AM VENETIAN BLIND TAPE CUTTER Temperature 36.9 C (98.4 F) 05/08/2021 11:41 AM VENETIAN BLIND TAPE CUTTER Respiratory Rate 17 05/08/2021 11:41 AM VENETIAN BLIND TAPE CUTTER Oxygen Saturation 97% 05/08/2021 11:41 AM VENETIAN BLIND TAPE CUTTER Inhaled Oxygen Concentration - - Weight 158.8 kg (350 lb) 05/08/2021 11:41 AM VENETIAN BLIND TAPE CUTTER Height 165.1 cm (5' 5 ) 05/08/2021 11:41 AM VENETIAN BLIND TAPE CUTTER Body Mass Index 58.24 05/08/2021 11:41 AM VENETIAN BLIND TAPE CUTTER Plan of Treatment Health Maintenance Due Date Last Done Comments COLOGUARD (AGES 45-75) - COLON CA SCREENING 1978 COLON MONITORING 1978 COLONOSCOPY - COLON CA SCREENING 1978 CT COLONOGRAPHY - COLON CA SCREENING 1978 Colorectal Cancer Screening 1978 FIT - COLON CA SCREENING 1978 FLEX SIG - COLON CA SCREENING 1978 MAMMOGRAM 1978 PAP SMEAR 1978 HIV SCREENING 1993 HEPATITIS C SCREENING 03/31/1996 DIABETES-SERUM CREATININE 1996 DTAP/TDAP/TD VACCINES (1 - Tdap) 1997 HEPATITIS B VACCINE (1 of 3 - 19+ 3-dose series) 1997 PNEUMOCOCCAL VACCINE (1 of 2 - PCV) 1997 DIABETES-STATIN 2018 DIABETES RETINOPATHY SCREENING 05/08/2021 DIABETES-FOOT EXAM WITH MONOFILAMENT 05/08/2021 DIABETES-HGB A1C 05/08/2021 COVID-19 VACCINE ( season) 2024 10/19/2020, 09/28/2020, 09/16/2020 INFLUENZA VACCINE (#1) 2024 , 04/24/2018, 05/28/2017, Additional history exists DEPRESSION SCREENING 06/30/2024 DIABETES - URINE PROTEIN SCREENING 06/30/2024 ZOSTER VACCINE (1 of 2) 2028 HIB VACCINE Aged Out No longer eligi ble based on patient's age to complete this topic HPV VACCINE Aged Out No longer eligi ble based on patient's age to complete this topic MENINGOCOCCAL (Group B) VACCINE SHARED DECISION-MAKING Aged Out No longer eligible based on patient's age to complete this topic MENINGOCOCCAL GROUPS A/C/Y/W VACCINE Aged Out No longer eligible based on patient's age to complete this topic Care Teams Hand Trucker Relationship Specialty Start Date End Date Rui Wilkins MD PCP - General Internal Medicine 03/26/18
--- OUTSIDE RECORDS SUMMARY | 2024-09-15 13:31 | XMS_ITS | Clinical Summary ---
Author Organization [facility] Angelita falcon [facility] Address [address] [place] [address] Care Team Providers Care Wrapper Selector Name Role Phone Tana Wilkins MD Primary Care Provider [phone] Allergies No known active allergies Medications atorvastatin (LIPITOR) 10 mg tablet Take 10 mg by mouth. 02/18/2023 Active lisinopril-hydro CHLOROthiazide (ZESTORETIC) 10-12.5 mg tablet Take 1 Tablet by mouth daily. Active bisoprolol (ZEBETA) 5 mg tablet Take 5 mg by mouth daily. 02/05/2023 Active tamoxifen (NOLVADEX) 20 mg tabletIndication s:Breast neoplasm, Tis (DCIS), right Take 1 Tablet (20 mg) by mouth daily. 90 Tablet 3 10/27/2023 Active Active Problems No known active problems Encounters Date Type Department Care Team Description 09/07/2024 External Device Data [facility] ABSTRACTION Provider, Abstract 09/07/2024 External Device Data [facility] Provider, Abstract 09/04/2024 External Device Data [facility] Provider, Abstract 09/03/2024 External Device Data [facility] [place] Provider, Abstract 09/01/2024 External Device Data [facility] [place] Provider, Abstract 08/17/2024 External Device Data [facility] [place] Provider, Abstract 08/10/2024 External Device Data [facility] [place] Provider, Abstract 07/21/2024 External Device Data [facility] [place] Provider, Abstract 07/21/2024 External Device Data [facility] Provider, Abstract 07/14/2024 External Device Data [facility]STRA[facility] Provider, Abstract from Last 3 Months Family History Medical History Relation Name Comments No Known Problems Brother Heart Disease Father Breast Cancer Mother Relation Name Status Comments Brother Alive Father Alive Mother Alive Social History Tobacco Use Types Packs/Day Years Used Date Smoking Tobacco: Never Tobacco Cessation:Counseling Given: Not Answered Alcohol Use Standard Drinks/Week Comments Never 0 (1 standard drink = 0.6 oz pur e alcohol) Comments No Sex and Gender Information Value Date Recorded Sex Assigned at Not on file Legal Sex Female 3:18 PM CDT Gender Identity Not on file Sexual Orientation Not on file Last Filed Vital Signs Vital Sign Reading Time Taken Comments Blood Pressure 127/73 12/29/2023 12:54 PM CDT Pulse 79 12/29/2023 12:54 PM CDT Temperature 36.8 C (98.2 F) 12/29/2023 12:54 PM CDT Respiratory Rate 18 12/29/2023 12:54 PM CDT Oxygen Saturation 95% 12/29/2023 12:54 PM CDT Inhaled Oxygen Concentration - - Weight 145.6 kg (321 lb) 12/29/2023 12:54 PM CDT Height 165.1 cm (5' 5 ) 03/07/2023 1:33 PM CDT Body Mass Index 53.42 03/07/2023 1:33 PM CDT Plan of Treatment Upcoming Encounters Date Type Department Care Team (Late st Contact Info) Description 09/23/2024 2:30 PM CDT Office Visit [facility] Oncology and Hematology - [place] [address] [facility] [address] [place] [address] Isaac Rasmussen MD [address] [facility] [address] [place] [address] Health Maintenance Due Date Last Done Comments DIABETES ANNUAL FOOT EXAM 1996 DIABETES ANNUAL RETINAL EXAM 1996 DIABETES MICROALBUMIN ANNUAL SCREEN 1996 LDL CHOLESTEROL ANNUAL 1996 HEPATITIS B VACCINES (1 of 3 - 19+ 3-dose series) 1997 CERVICAL CANCER SCREENING 2008 BREAST CANCER SCREENING 10/15/2018 10/15/2017 COLORECTAL SCREENING 2023 Colorectal Cancer Screening 2023 FIT-DNA Q 3 years 2023 FIT/FOBT Q 1 year 2023 Flex Sig/CT Colonography Q 5 years 2023 COVID-19 Vaccine ( season) 2024 08/03/2021, 10/19/2020, 09/28/2020, Additional history exists DIABETES HBA1C Q 6 MONTHS 04/20/2024 10/20/2023, 12/2022 Preventative Visit- Commercial 06/30/2024 11/13/2022 DTAP/TDAP/TD VACCINES (2 - Td or Tdap) 12/25/2031 12/24/2021 INFLUENZA VACCINE Completed 03/13/2024, , 03/24/2020, Additional history exists HPV VACCINES Aged Out No longer eligi ble based on patient's age to complete this topic Insurance CHOICE [id number] CHOICE [id number] Care Teams Wrapper Selector Relationship Specialty [place] [id number] [address] [address] PCP - General Internal Medicine 03/07/23
--- OUTSIDE RECORDS SUMMARY | 2024-09-15 13:31 | XMS_ITS | Encounter Summary ---
Author Organization [facility] Address [address] [place] [address] Care Team Providers Care Soda Room Operator Name Role Phone Adeline Dave CARPENTRY TEACHER Primary Care Provider Debra Olvera CARPENTRY TEACHER Primary Care Provider [phone] Encounter Details Date Type Department Care Team (Late st Contact Info) Description 06/16/2023 SixIntel Message Enc [facility] Medical Group Family & Internal Medicine [facility] [address] [place] [address] [place] [address] [facility], [address] [place] [address] Chest congestion Social History Tobacco Use Types Packs/Day Years [...] 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 Would you like patient evaluated in office? [employer]Y CLERK [employer] documented in this encounter Plan of Treatment Upcoming Encounters Date Type Department Care Team (Late st Contact Info) Description 11/08/2024 3:20 PM CDT Office Visit [facility] Medical Group Family & Internal Medicine [facility] [id number] [place] [address] [place] [address] [facility] [address] [place] [address] documented as of this encounter Visit Diagnoses Not on filedocumented in this encounter Additional Health Concerns Infection Onset Date Last Indicated Resolved Time COVID-19 Rule Out 06/16/2023 06/16/2023 06/16/2023 3:56 PM LIBRARY CLERK [employer]ING [employer]KS COVID-19 Rule Out 06/16/2023 06/16/2023 06/16/2023 3:57 PM LIBRARY CLERK TALKING [employer]OOKS COVID-19 Rule Out 06/16/2023 06/16/2023 06/16/2023 3:58 PM LIBRARY CLERK TALKING [employer]KS COVID-19 Rule Out 06/16/2023 06/16/2023 06/16/2023 4:56 PM LIBRARY CLERK [employer]ALKING [employer]KS Assessment Noted Time PHQ-9 Depression Total Score: 0 09/25/19 22 11:09 AM CDT documented as of this encounter Care Teams Soda Room Operator Relationship Specialty Start Date [place] [id number] [place] [address], [address] [place] [address] PCP - General Nurse Practitioner Family 10/04/2206/30 [place] [address] [facility] [address] [place] [address] PCP - General Nurse Practitioner Family 07/14/23 documented as of this encounter
--- OUTSIDE RECORDS SUMMARY | 2024-09-15 13:31 | XMS_ITS | Encounter Summary ---
Author Organization [facility] Address [address] [place] [address] Care Team Providers Care Servicing Rep Name Role Phone Rui Wilkins MD Primary Care Provider Adeline Wilkins NP Primary Care Provider [phone] Debra Olvera NP Primary Care Provider [phone] Encounter Details Date Type Department Care Team (Late st Contact Info) Description 08/13/2022 FANCRU Message Enc [facility] Medical Group Family & Internal Medicine [address] [address] [facility] Provider rohini Social History Tobacco Use Types Packs/Day Years [...] 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 No / Unsure 08/16/2022 2:56 PM PIPE COVERER documented as of this encounter Plan of Treatment Upcoming Encounters Date Type Department Care Team (Late st Contact Info) Description 11/08/2024 3:20 PM CDT Office Visit [facility] Medical Group Family & Internal Medicine [facility] [address] [place] [address] [place] [address] [facility] [address] [place], [place] [id number] documented as of this encounter Visit Diagnoses Not on filedocumented in this encounter Additional Health Concerns Infection Onset Date Last Indicated Resolved Time COVID-19 Rule Out 06/16/2023 06/16/2023 06/16/2023 3:56 PM PIPE COVERER COVID-19 Rule Out 06/16/2023 06/16/2023 06/16/2023 3:57 PM PIPE COVERER COVID-19 Rule Out 06/16/2023 06/16/2023 06/16/2023 3:58 PM PIPE COVERER COVID-19 Rule Out 06/16/2023 06/16/2023 06/16/2023 4:56 PM PIPE COVERER Assessment Noted Time PHQ-9 Depression Total Score: 0 09/25/19 22 11:09 AM CDT documented as of this encounter Care Teams Servicing Rep Relationship Specialty Start Date End Date Rui Wilkins MD PCP - General INTERNAL MEDICINE 04/08/18 10/03/22 [place] [address] [facility], [address] [place] [address] PCP - General Nurse Practitioner Family 10/04/2206/30 [place] [address] [facility] [address] [place] [address] PCP - General Nurse Practitioner Family 07/14/23 documented as of this encounter
--- OUTSIDE RECORDS SUMMARY | 2024-09-15 13:31 | XMS_ITS | Encounter Summary ---
Author Organization [facility] Address [address] [place] [address] Care Team Providers Care Track Greaser Name Role Phone Rui Wilkins MD Primary Care Provider U Adeline Becerra CULINARY INTERNSHIP Primary Care Provider [phone] Debra Olvera CULINARY INTERNSHIP Primary Care Provider [phone] Encounter Details Date Type Department Care Team (Late st Contact Info) Description 12/26/2021 Mercantilat Message Enc [facility] Medical Group Family & Internal Medicine [address] [address] Rui Wilkins MD TDap Social History Tobacco Use Types Packs/Day Years [...] 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 [place], [place] [id number] documented as of this encounter Visit Diagnoses Not on filedocumented in this encounter Additional Health Concerns Infection Onset Date Last Indicated Resolved Time COVID-19 Rule Out 06/16/2023 06/16/2023 06/16/2023 3:[address] PHOTOGRAPHER COVID-19 Rule Out 06/16/2023 06/16/2023 06/16/2023 3:[address] PHOTOGRAPHER COVID-19 Rule Out 06/16/2023 06/16/2023 06/16/2023 3:[address] PHOTOGRAPHER COVID-19 Rule Out 06/16/2023 06/16/2023 06/16/2023 4:[address] PHOTOGRAPHER Assessment Noted Time PHQ-9 Depression Total Score: 0 09/25/19 22 11:09 AM CDT documented as of this encounter Care Teams Track Greaser Relationship Specialty Start Date End Date Rui Wilkins MD PCP - General INTERNAL MEDICINE 04/08/18 10/03/22 [place] [address] [facility], [address] [place], [place] [phone] PCP - General Nurse Practitioner Family 10/04/2206/30 [place] [address] [facility] [address] [place], [place] [id number] PCP - General Nurse Practitioner Family 07/14/23 documented as of this encounter
--- OUTSIDE RECORDS SUMMARY | 2024-09-15 13:31 | XMS_ITS | Encounter Summary ---
Author Organization [facility] Address [address] [place] [address] Care Team Providers Care Librarian Assistant Name Role Phone Debra Olvera NP Primary Care Provider Encounter Details Date Type Department Care Team (Late st Contact Info) Description 01/06/2024 MicroPhage Message Enc [facility] Medical Group Family & Internal Medicine [facility] [address] [place] [address] [place] [address] [facility] [address] [place] [address] Ozempic Social History Tobacco Use Types Packs/Day Years [...] 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 Not on file Not on f ile documented as of this encounter Plan of Treatment Upcoming Encounters Date Type Department Care Team (Late st Contact Info) Description 11/08/2024 3:20 PM CDT Office Visit [facility] Medical Group Family & Internal Medicine [facility] [address] [place] [address] Debra Olvera NP [address] [place] [address] documented as of this encounter Visit Diagnoses Not on filedocumented in this encounter Additional Health Concerns Assessment Noted Time PHQ-9 Depression Total Score: 0 10/20/19 24 9:44 AM CDT documented as of this encounter Care Teams Librarian Assistant Relationship Specialty Start Date End Date Debra Olvera NP [address] [place] [address] [address] [facility] [place] [address] PCP - General Nurse Practitioner Family 07/14/23 documented as of this encounter
[2024-09-15 16:54] LABS: Sodium 136 mmol/L (137-145)
[2024-09-15 17:08] LABS: Anion Gap 9 mmol/L (4-12); Blood Urea Nitrogen 17 mg/dL (7-17); Carbon Dioxide 24 mmol/L (22-30); Chloride 103 mmol/L (98-107); Estimated Glomerular Filt Rate > 60; Glucose 92 mg/dL (65-110); Potassium 3.9 mmol/L (3.4-5.0)
[2024-09-17 04:08] LABS: CA 15-3 5 U/mL (<32)
== END 2024-09-15 11:47 | disposition home or self-care (01) ==
LOC: ANHLAB 11:47
PROVIDERS: Visit Provider Internal Medicine Hematology & Oncology
DX: C50.111 Malignant neoplasm of central portion of right female breast (principal)
CPT/HCPCS: 36415; 80048; 85025; 86300

== ENCOUNTER 2025-03-18 08:58 | Outpatient (CLI) | payer OTHER, SELFPAY ==
--- OUTSIDE RECORDS SUMMARY | 2025-03-18 09:01 | XMS_ITS | Clinical Summary ---
Author Organization [facility] Address [address] [place] [address] Care Team Providers Care Wall Mirror Department Supervisor Name Role Phone Rui Wilkins MD Primary Care Provider + Source Comments [facility],non-owned Affiliates and Associated Physician Practices is amultiple site organization consisting of ambulatory clinics and hospital sitesin [place], [place], [place] and [place]. This disclosure is being madepursuant to the Care Everywhere program and may not contain all information available regarding this patient. Last updated 18.[facility] Allergies No known active allergies Medications * Be aware that medications may not be up to date on this document. Alwaysverify current medications with the patient. dulaglutide (TRULICITY) 1.5 MG/0.5ML injection Inject 1.5 mg subcutaneously every 7 days Active lisinopril-hydr oCHLOROthiazide (PRINZIDE; ZESTORETIC) 10-12.5 MG tablet Take 1 tablet by mouth once daily 01/06/20 21 Active dulaglutide (TRULICITY) 4.5 MG/0.5ML injection Inject 4.5 mg subcutaneously every 7 days 04/06/20 21 Active albuterol HFA (PROVENTIL; VENTOLIN; PROAIR) 108 (90 Base) MCG/ACT inhalerIndicati ons:Acute bronchitis, unspecified organism Inhale 2 (two) puffs by mouth every 6 hours as needed for Wheezing or Cough 1 g 05/08/20 21 Active fluticasone propionate (FLONASE) 50 MCG/ACT nasal sprayIndication s:Acute sinusitis, recurrence not specified, unspecified location [place] 2 (two) sprays into each nostril once daily 1 Each 05/08/20 21 Active Active Problems Problem Noted Date Diagnosed Date Endometriosis 07/21/2020 Type 2 diabetes mellitus wit hout complication, without long-term current use of insulin 07/21/2020 Nausea 12/11/2018 Vaginal bleeding 12/11/2018 Benign hypertension 05/28/2017 BMI 50.0-59.9, adult 05/28/2017 Metabolic syndrome 01/29/2017 Hyperglycemia 01/27/2017 Classic migraine with aura 04/21/2014 Social History Tobacco Use Types Packs/Day Years Used Date Smoking Tobacco: Never Smokeless Tobacco: Never Comments No Sex and Gender Information Value Date Recorded Sex Assigned at Not on file Legal Sex Female 6:14 PM CDT Gender Identity Not on file Sexual Orientation Not on file Last Filed Vital Signs Vital Sign Reading Time Taken Comments Blood Pressure 128/82 05/08/2021 11:41 AM FRAME OPENER Pulse 92 05/08/2021 11:41 AM FRAME OPENER Temperature 36.9 C (98.4 F) 05/08/2021 11:41 AM FRAME OPENER Respiratory Rate 17 05/08/2021 11:41 AM FRAME OPENER Oxygen Saturation 97% 05/08/2021 11:41 AM FRAME OPENER Inhaled Oxygen Concentration - - Weight 158.8 kg (350 lb) 05/08/2021 11:41 AM FRAME OPENER Height 165.1 cm (5' 5) 05/08/2021 11:41 AM FRAME OPENER Body Mass Index 58.24 05/08/2021 11:41 AM FRAME OPENER Plan of Treatment Health Maintenance Due Date Last Done Comments COLOGUARD (AGES 45-75) - COLON CA SCREENING 1978 COLON MONITORING 1978 COLONOSCOPY - COLON CA SCREENING 1978 CT COLONOGRAPHY - COLON CA SCREENING 1978 Colorectal Cancer Screening 1978 FIT - COLON CA SCREENING 1978 FLEX SIG - COLON CA SCREENING 1978 MAMMOGRAM 1978 HIV SCREENING 1993 HEPATITIS C SCREENING 03/31/1996 DIABETES-SERUM CREATININE 1996 DTAP/TDAP/TD VACCINES (1 - Tdap) 1997 HEPATITIS B VACCINE (1 of 3 - 19+ 3-dose series) 1997 PNEUMOCOCCAL VACCINE (1 of 2 - PCV) 1997 PAP SMEAR 1999 DIABETES-STATIN 2018 DIABETES RETINOPATHY SCREENING 05/08/2021 DIABETES-FOOT EXAM WITH MONOFILAMENT 05/08/2021 DIABETES-HGB A1C 05/08/2021 DEPRESSION SCREENING 06/30/2024 DIABETES - URINE PROTEIN SCREENING 06/30/2024 COVID-19 VACCINE ( season) 2025 10/19/2020, 09/28/2020, 09/16/2020 INFLUENZA VACCINE (#1) 2025 , 04/24/2018, 05/28/2017, Additional history exists ZOSTER VACCINE (1 of 2) 2028 HIB [...] patient's age [place] [address] [facility] CARE [facility] CARE [facility] Care Teams Wall Mirror Department Supervisor Relationship Specialty Start Date End Date Rui Wilkins MD PCP - General Internal Medicine 03/26/18
--- OUTSIDE RECORDS SUMMARY | 2025-03-18 09:01 | XMS_ITS | Clinical Summary ---
Author Organization [facility] Angelita Munsonmassiel Address [address] [place] [address] Care Team Providers Care Wildlife Protector Name Role Phone Unavailable Primary Care Provider Unavailabl e Allergies No known active allergies Medications atorvastatin [...] mg) by mouth daily. 90 Tablet 3 09/23/2024 Active Active Problems No known active problems Encounters Date Type Department Care Team Description 03/15/2025 External Device Data ST[facility] ABSTRACTION Provider, Abstract 02/01/2025 External Device Data ST[facility] ABSTRACTION Provider, Abstract 01/12/2025 External Device Data ST[facility] ABSTRACTION Provider, Abstract 01/11/2025 External Device Data ST[facility] ABSTRACTION Provider, Abstract [...] Value Date Recorded Sex Assigned at Female 02/16/2025 10:23 AM CDT Legal Sex Female 3:18 PM CDT Gender Identity Female 02/16/2025 10:23 AM CDT Sexual Orientation Straight 02/16/2025 10 :23 AM CDT Last Filed Vital Signs Vital Sign Reading Time Taken Comments Blood Pressure 114/73 09/23/2024 2:18 PM CDT Pulse 79 09/23/2024 2:18 PM CDT Temperature 36.2 C (97.2 F) 09/23/2024 2:18 PM CDT Respiratory Rate 16 09/23/2024 2:18 PM CDT Oxygen Saturation 96% 09/23/2024 2:1 8 PM CDT Inhaled Oxygen Concentration - - Weight 125.4 kg (276 lb 6.4 oz) 09/23/2024 2:18 PM CDT Pt verbally stated that she is trying to lose weight Height 165.1 cm (5' 5) 03/07/2023 1:33 PM CDT Body Mass Index 46 03/07/2023 1:33 PM CDT Plan of Treatment Upcoming Encounters Date Type Department Care Team (Late st Contact Info) Description 03/28/2025 1:15 PM CDT Office Visit [facility] Oncology and Hematology [facility] [address] [place] [address] [facility] [address] [place] [address] Isaac Rasmussen MD [address] [facility] [address] [place] [address] Health Maintenance Due Date Last Done Comments DIABETES ANNUAL FOOT EXAM 1996 DIABETES ANNUAL RETINAL EXAM 1996 DIABETES MICROALBUMIN ANNUAL SCREEN 1996 LDL CHOLESTEROL ANNUAL 1996 HEPATITIS B VACCINES (1 of 3 - 19+ 3-dose series) 1997 BREAST CANCER SCREENING 10/15/2018 10/15/2017 FIT-DNA Q 3 years 2023 FIT/FOBT Q 1 year 2023 Flex Sig/CT Colonography Q 5 years 2023 Preventative Visit- Commercial 06/30/2024 11/13/2022 DIABETES HBA1C Q 6 MONTHS 11/09/20242023, 10/20/2023, 05/06/2023 INFLUENZA VACCINE (#1) 2025 , 03/17/2023, 03/24/2020, Additional history exists COVID-19 Vaccine (2024- season) 2025 08/03/2021, 10/19/2020, 09/28/2020, Additional history exists DTAP/TDAP/TD VACCINES (2 - Td or Tdap) 12/25/2031 12/24/2021 COLORECTAL SCREENING 07/16/2034 07/16/2024, 06/30/18 Colorectal Cancer Screening 07/16/2034 HPV VACCINES Aged Out No longer eligi ble based on patient's age to complete this topic Insurance CHOICE [id number] [employer] [id number] [place] [id number]
[2025-03-18 09:15] LABS: Hematocrit 40.1 % (37.0-47.0); Hemoglobin 13.6 g/dL (12.0-15.0); Immature Granulocyte Percent A 0.3 % (0-0.5); Lymphocytes Absolute Auto 1.86 K/mm3 (0.9-3.2); Mean Corpuscular HGB Conc 33.9 g/dl (32-36); Mean Corpuscular Hemoglobin 31.3 pg (26-34); Mean Corpuscular Volume 92.4 fl (80-100); Nucleated Red Blood Cells Absolute Auto 0.000 K/mm3 (0.0-0.012); Nucleated Red Blood Cells Perc 0.0 % (0.0-0.2); Platelet Count Result 212 k/mm3 (150-375); Red Blood Count 4.34 M/mm3 (4.2-5.4); White Blood Count 9.9 K/mm3 (4.5-10.0)
[2025-03-18 14:13] LABS: Alanine Aminotransferase 19 U/L (6-35); Albumin Level 3.6 g/dL (3.5-5.1); Alkaline Phosphatase 75 U/L (38-126); Anion Gap 6 mmol/L (4-12); Aspartate Amino Transferase 48 U/L (14-36); Bilirubin,Total 0.6 mg/dL (0.2-1.3); Blood Urea Nitrogen 15 mg/dL (7-17); Calcium 8.9 mg/dL (8.4-10.2); Carbon Dioxide 26 mmol/L (22-30); Chloride 104 mmol/L (98-107); Estimated Glomerular Filt Rate > 60; Glucose 102 mg/dL (65-110); Potassium 4.0 mmol/L (3.4-5.0); Sodium 136 mmol/L (137-145); Total Protein 6.6 g/dL (6.3-8.2)
== END 2025-03-18 08:59 | disposition home or self-care (01) ==
PROVIDERS: Visit Provider Internal Medicine Hematology & Oncology
DX: D05.11 Intraductal carcinoma in situ of right breast (principal)
CPT/HCPCS: 36415; 80053; 85025; 86300